=== PATIENT | male | born 1935 | race Caucasian/White ===

== ENCOUNTER → 2018-02-24 | Outpatient (REF) | payer OTHER ==
[2018-02-24 08:37] LABS: HEMATOCRIT 31.2 % (42.0-52.0); HEMOGLOBIN 10.5 g/dl (13.5-17.5); MEAN CORPUSCULAR HEMOGLOBIN 30.5 pg (27.0-33.0); MEAN CORPUSCULAR HGB CONC 33.7 g/dl (32.0-36.5); MEAN CORPUSCULAR VOLUME 90.7 fl (80.0-96.0); PLATELET COUNT, AUTOMATED 262 10^3/uL (150-450); RED BLOOD COUNT 3.44 10^6/uL (4.30-6.10); RED CELL DISTRIBUTION WIDTH 14.6 % (11.5-14.5); WHITE BLOOD COUNT 5.8 10^3/uL (4.0-10.0)
[2018-02-24 09:21] LABS: ANION GAP 8 MEQ/L (8-16); BLOOD UREA NITROGEN 27 MG/DL (7-18); CALCIUM LEVEL 8.7 MG/DL (8.8-10.2); CARBON DIOXIDE LEVEL 25 MEQ/L (21-32); CHLORIDE LEVEL 107 MEQ/L (98-107); CHOLESTEROL LEVEL 167 MG/DL (<200); CREATININE FOR GFR 1.41 MG/DL (0.70-1.30); GLOMERULAR FILTRATION RATE 51.5 (>35); GLUCOSE, FASTING 141 MG/DL (70-100); HDL CHOLESTEROL 59 MG/DL (>40); IRON (FE) 50 UG/DL (65-175); NON-HDL-C 108 MG/DL; SODIUM LEVEL 140 MEQ/L (136-145); TRIGLYCERIDES LEVEL 120 MG/DL (<150)
[2018-02-24 09:39] LABS: ESTIMATED AVERAGE GLUCOSE 217 MG/DL (60-110); HEMOGLOBIN A1c 9.2 %
== END ==
LOC: SKLAB8 07:00
DX: E87.6 Hypokalemia (principal); E11.9 Type 2 diabetes mellitus without complications; I10 Essential (primary) hypertension; N13.30 Unspecified hydronephrosis; L03.115 Cellulitis of right lower limb; K76.89 Other specified diseases of liver; F03.90 Unspecified dementia, unspecified severity, without behavioral disturbance, psychotic disturbance, mood disturbance, and anxiety; Z79.899 Other long term (current) drug therapy
CPT/HCPCS: 83540

== ENCOUNTER → 2018-03-17 | Outpatient (REF) | payer OTHER ==
[2018-03-17 08:29] LABS: HEMATOCRIT 33.1 % (42.0-52.0); HEMOGLOBIN 11.3 g/dl (13.5-17.5); MEAN CORPUSCULAR HEMOGLOBIN 31.1 pg (27.0-33.0); MEAN CORPUSCULAR HGB CONC 34.1 g/dl (32.0-36.5); MEAN CORPUSCULAR VOLUME 91.2 fl (80.0-96.0); PLATELET COUNT, AUTOMATED 226 10^3/uL (150-450); RED BLOOD COUNT 3.63 10^6/uL (4.30-6.10); WHITE BLOOD COUNT 5.7 10^3/uL (4.0-10.0)
[2018-03-17 09:01] LABS: ANION GAP 7 MEQ/L (8-16); BLOOD UREA NITROGEN 22 MG/DL (7-18); CALCIUM LEVEL 8.7 MG/DL (8.8-10.2); CARBON DIOXIDE LEVEL 28 MEQ/L (21-32); CHLORIDE LEVEL 108 MEQ/L (98-107); CREATININE FOR GFR 1.54 MG/DL (0.70-1.30); GLOMERULAR FILTRATION RATE 46.5 (>35); GLUCOSE, FASTING 142 MG/DL (70-100); POTASSIUM SERUM 4.1 MEQ/L (3.5-5.1); SODIUM LEVEL 143 MEQ/L (136-145)
== END ==
LOC: SKLAB8 08:00
DX: R33.9 Retention of urine, unspecified (principal); N13.9 Obstructive and reflux uropathy, unspecified; Z87.448 Personal history of other diseases of urinary system
CPT/HCPCS: 80048

== ENCOUNTER → 2018-03-17 | Outpatient (CLI) | payer OTHER | LOC: M RAD 13:03 | DX: N28.89 Other specified disorders of kidney and ureter (principal); N13.30 Unspecified hydronephrosis | CPT/HCPCS: 76775 ==

== ENCOUNTER → 2018-04-05 | Outpatient (REF) | payer OTHER ==
[2018-04-05 21:58] LABS: BASO % 0.1 % (0.0-1.0); EOS % 0.3 % (0.0-3.0); HEMOGLOBIN 10.8 g/dl (13.5-17.5); IMMATURE GRANULOCYTE % 0.7 % (0-3.0); LYMPH # 0.5 10^3/uL (1.5-4.5); LYMPH % 4.8 % (24.0-44.0); MEAN CORPUSCULAR HGB CONC 33.8 g/dl (32.0-36.5); MONO # 0.6 10^3/uL (0.0-0.8); MONO % 5.2 % (0.0-5.0); NEUTROPHILS # 9.4 10^3/uL (1.8-7.7); NEUTROPHILS % 88.9 % (36.0-66.0); PLATELET COUNT, AUTOMATED 169 10^3/uL (150-450); RED BLOOD COUNT 3.48 10^6/uL (4.30-6.10); RED CELL DISTRIBUTION WIDTH 14.6 % (11.5-14.5); WHITE BLOOD COUNT 10.6 10^3/uL (4.0-10.0)
[2018-04-05 22:18] LABS: ANION GAP 5 MEQ/L (8-16); BLOOD UREA NITROGEN 21 MG/DL (7-18); CALCIUM LEVEL 8.1 MG/DL (8.8-10.2); CARBON DIOXIDE LEVEL 27 MEQ/L (21-32); CHLORIDE LEVEL 109 MEQ/L (98-107); CREATININE FOR GFR 1.31 MG/DL (0.70-1.30); GLUCOSE, FASTING 151 MG/DL (70-100); POTASSIUM SERUM 3.7 MEQ/L (3.5-5.1); SODIUM LEVEL 141 MEQ/L (136-145)
== END ==
LOC: SKLAB8 21:13
DX: R50.9 Fever, unspecified (principal)
CPT/HCPCS: 71045

== ENCOUNTER → 2018-05-26 | Outpatient (REF) | payer OTHER ==
[2018-05-26 08:10] LABS: HEMATOCRIT 33.1 % (42.0-52.0); HEMOGLOBIN 11.7 g/dl (13.5-17.5); MEAN CORPUSCULAR HEMOGLOBIN 32.1 pg (27.0-33.0); MEAN CORPUSCULAR HGB CONC 35.3 g/dl (32.0-36.5); MEAN CORPUSCULAR VOLUME 90.7 fl (80.0-96.0); PLATELET COUNT, AUTOMATED 247 10^3/uL (150-450); RED BLOOD COUNT 3.65 10^6/uL (4.30-6.10); RED CELL DISTRIBUTION WIDTH 13.2 % (11.5-14.5); WHITE BLOOD COUNT 6.9 10^3/uL (4.0-10.0)
[2018-05-26 08:35] LABS: IRON (FE) 58 UG/DL (65-175)
== END ==
LOC: SKLAB8 07:00
DX: Z00.00 Encounter for general adult medical examination without abnormal findings (principal); Z79.899 Other long term (current) drug therapy
CPT/HCPCS: 83540

== ENCOUNTER → 2018-07-06 | Outpatient (REF) | payer OTHER ==
[2018-07-06 07:20] LABS: ESTIMATED AVERAGE GLUCOSE 203 MG/DL (60-110); HEMOGLOBIN A1c 8.7 %
== END ==
LOC: SKLAB8 08:00
DX: E11.9 Type 2 diabetes mellitus without complications (principal)
CPT/HCPCS: 83036

== ENCOUNTER → 2018-07-13 | Outpatient (REF) | payer OTHER | LOC: SKLAB8 08:00 | DX: K08.9 Disorder of teeth and supporting structures, unspecified (principal) | CPT/HCPCS: 70355 ==

== ENCOUNTER → 2018-07-26 | Outpatient (REF) | payer OTHER ==
[2018-07-26 03:12] LABS: APPEARANCE, URINE CLOUDY (CLEAR); BACTERIA, URINE AUTO 2+ (NEGATIVE); BILIRUBIN, URINE AUTO NEGATIVE (NEGATIVE); BLOOD, URINE BLOOD NEGATIVE (NEGATIVE); COLOR, URINE YELLOW (YELLOW); GLUCOSE, URINE (UA) AUTO 3+ mg/dL (NEGATIVE); KETONE, URINE AUTO NEGATIVE (NEGATIVE); LEUKOCYTE ESTERASE, URINE AUTO 2+ (NEGATIVE); MUCUS, URINE SMALL (NEGATIVE); NITRITE, URINE AUTO NEGATIVE (NEGATIVE); PROTEIN, URINE AUTO NEGATIVE (NEGATIVE); RBC, URINE AUTO TNTC /HPF (0-3); SPECIFIC GRAVITY URINE AUTO 1.014 (1.002-1.035); SQUAMOUS EPITHELIAL CELL UR AU 0 /HPF (0-6); UROBILINOGEN, URINE AUTO 0.2 mg/dL (0.0-2.0); WBC, URINE AUTO 15 /HPF (0-3); YEAST LIKE CELL URINE AUTO LARGE
== END ==
LOC: M LAB 01:55
DX: R30.0 Dysuria (principal)
CPT/HCPCS: 81001

== ENCOUNTER → 2018-08-05 | Outpatient (REF) | payer OTHER | LOC: M SMT 12:59 | DX: N40.1 Benign prostatic hyperplasia with lower urinary tract symptoms (principal) | CPT/HCPCS: 87186 ==

== ENCOUNTER → 2018-08-13 | Outpatient (CLI) | payer OTHER ==
[2018-08-13 21:57] LABS: APPEARANCE, URINE CLEAR (CLEAR); BACTERIA, URINE AUTO NEGATIVE (NEGATIVE); BILIRUBIN, URINE AUTO NEGATIVE (NEGATIVE); BLOOD, URINE BLOOD NEGATIVE (NEGATIVE); COLOR, URINE YELLOW (YELLOW); GLUCOSE, URINE (UA) AUTO 3+ mg/dL (NEGATIVE); KETONE, URINE AUTO NEGATIVE (NEGATIVE); LEUKOCYTE ESTERASE, URINE AUTO 3+ (NEGATIVE); MUCUS, URINE SMALL (NEGATIVE); NITRITE, URINE AUTO NEGATIVE (NEGATIVE); PROTEIN, URINE AUTO NEGATIVE (NEGATIVE); RBC, URINE AUTO 9 /HPF (0-3); SPECIFIC GRAVITY URINE AUTO 1.018 (1.002-1.035); SQUAMOUS EPITHELIAL CELL UR AU 0 /HPF (0-6); UROBILINOGEN, URINE AUTO 0.2 mg/dL (0.0-2.0); WBC, URINE AUTO 109 /HPF (0-3); YEAST LIKE CELL URINE AUTO SMALL
== END ==
LOC: SKLAB8 21:28
DX: N39.0 Urinary tract infection, site not specified (principal)
CPT/HCPCS: 81001

== ENCOUNTER → 2018-08-25 | Outpatient (REF) | payer OTHER ==
[2018-08-25 08:42] LABS: HEMATOCRIT 32.6 % (42.0-52.0); HEMOGLOBIN 11.4 g/dl (13.5-17.5); MEAN CORPUSCULAR HEMOGLOBIN 33.5 pg (27.0-33.0); MEAN CORPUSCULAR VOLUME 95.9 fl (80.0-96.0); PLATELET COUNT, AUTOMATED 178 10^3/uL (150-450); RED CELL DISTRIBUTION WIDTH 13.7 % (11.5-14.5); WHITE BLOOD COUNT 4.9 10^3/uL (4.0-10.0)
[2018-08-25 09:09] LABS: ANION GAP 8 MEQ/L (8-16); BLOOD UREA NITROGEN 19 MG/DL (7-18); CALCIUM LEVEL 8.3 MG/DL (8.8-10.2); CARBON DIOXIDE LEVEL 27 MEQ/L (21-32); CHLORIDE LEVEL 110 MEQ/L (98-107); CREATININE FOR GFR 1.28 MG/DL (0.70-1.30); GLOMERULAR FILTRATION RATE 57.4 (>35); GLUCOSE, FASTING 107 MG/DL (70-100); IRON (FE) 64 UG/DL (65-175); POTASSIUM SERUM 3.8 MEQ/L (3.5-5.1); SODIUM LEVEL 145 MEQ/L (136-145)
[2018-08-25 11:32] LABS: ESTIMATED AVERAGE GLUCOSE 212 MG/DL (60-110)
== END ==
LOC: SKLAB8 07:00
DX: F03.90 Unspecified dementia, unspecified severity, without behavioral disturbance, psychotic disturbance, mood disturbance, and anxiety (principal); E11.9 Type 2 diabetes mellitus without complications
CPT/HCPCS: 83540

== ENCOUNTER → 2018-10-12 | Outpatient (REF) | payer OTHER ==
[2018-10-12 15:28] LABS: HEMATOCRIT 35.5 % (42.0-52.0); HEMOGLOBIN 12.2 g/dl (13.5-17.5); MEAN CORPUSCULAR HEMOGLOBIN 31.1 pg (27.0-33.0); MEAN CORPUSCULAR HGB CONC 34.4 g/dl (32.0-36.5); MEAN CORPUSCULAR VOLUME 90.6 fl (80.0-96.0); PLATELET COUNT, AUTOMATED 213 10^3/uL (150-450); RED BLOOD COUNT 3.92 10^6/uL (4.30-6.10); RED CELL DISTRIBUTION WIDTH 13.3 % (11.5-14.5); WHITE BLOOD COUNT 6.3 10^3/uL (4.0-10.0)
[2018-10-12 16:07] LABS: ALBUMIN 3.7 GM/DL (3.2-5.2); ALBUMIN/GLOBULIN RATIO 1.32 (1.00-1.93); ALKALINE PHOSPHATASE 77 U/L (45-117); ALT/SGPT 24 U/L (12-78); ANION GAP 7 MEQ/L (8-16); AST/SGOT 15 U/L (7-37); BILIRUBIN,TOTAL 0.7 MG/DL (0.2-1.0); BLOOD UREA NITROGEN 20 MG/DL (7-18); CALCIUM LEVEL 8.6 MG/DL (8.8-10.2); CARBON DIOXIDE LEVEL 26 MEQ/L (21-32); CHLORIDE LEVEL 110 MEQ/L (98-107); CREATININE FOR GFR 1.36 MG/DL (0.70-1.30); GLOMERULAR FILTRATION RATE 53.5 (>35); GLUCOSE, FASTING 98 MG/DL (70-100); POTASSIUM SERUM 3.9 MEQ/L (3.5-5.1); SODIUM LEVEL 143 MEQ/L (136-145); TOTAL PROTEIN 6.5 GM/DL (6.4-8.2)
== END ==
LOC: SKLAB8 08:00
DX: Z00.00 Encounter for general adult medical examination without abnormal findings (principal)
CPT/HCPCS: 84443

== ENCOUNTER → 2018-11-24 | Outpatient (REF) | payer OTHER ==
[2018-11-24 08:44] LABS: HEMATOCRIT 36.3 % (42.0-52.0); HEMOGLOBIN 12.9 g/dl (13.5-17.5); MEAN CORPUSCULAR HEMOGLOBIN 32.5 pg (27.0-33.0); MEAN CORPUSCULAR HGB CONC 35.5 g/dl (32.0-36.5); MEAN CORPUSCULAR VOLUME 91.4 fl (80.0-96.0); PLATELET COUNT, AUTOMATED 210 10^3/uL (150-450); RED BLOOD COUNT 3.97 10^6/uL (4.30-6.10); WHITE BLOOD COUNT 6.5 10^3/uL (4.0-10.0)
== END ==
LOC: SKLAB8 07:00
PROVIDERS: ATTEND Family Medicine
DX: F03.90 Unspecified dementia, unspecified severity, without behavioral disturbance, psychotic disturbance, mood disturbance, and anxiety (principal); E11.9 Type 2 diabetes mellitus without complications

== ENCOUNTER → 2019-03-06 | Outpatient (REF) | payer OTHER ==
--- NOTE | 2019-03-07 01:50 | REP ---
Clinical: Pain. Technique: AP, lateral, bilateral oblique and sunrise views of the right knee. Findings: Mild arthritic changes include cortical irregularity to the femoral condyles, increased sclerosis to the tibial plateau and periarticular surfaces of the patellofemoral joint space as well as fraying along the anterior margin of the patella and very subtle early osteophyte formation/spurring. [place] view demonstrates mild patellofemoral joint space narrowing and lateral spurring. No acute fracture or dislocation. No effusion. Impression: Mild osteoarthritic degenerative changes. No obvious acute fracture or dislocation. Electronically Signed by Eyad Hirsch MD 03/07/2019 01:43 A
== END ==
LOC: SKLAB8 13:00
PROVIDERS: ATTEND Family Medicine
DX: M25.561 Pain in right knee (principal); M17.11 Unilateral primary osteoarthritis, right knee

== ENCOUNTER → 2019-03-16 | Outpatient (REF) | payer OTHER ==
--- NOTE | 2019-03-16 15:15 | REP ---
Left knee series: Five views. History: Pain. No trauma. Findings: Five views of the left knee demonstrates articular osteoarthritic spurring of the lateral patellar margin on sunrise view. There is mild nonarticular spurring at the superior pole of the patella as well. Vascular calcifications noted in the proximal calf soft tissues. Bones, joints and soft tissues are otherwise unremarkable. Impression: Mild osteoarthritis. No acute bony abnormality. Electronically Signed by Cristino Carter MD 03/16/2019 03:06 P
== END ==
LOC: SKLAB8 13:37
PROVIDERS: ATTEND Family Medicine
DX: M25.562 Pain in left knee (principal); M17.12 Unilateral primary osteoarthritis, left knee

== ENCOUNTER → 2019-05-25 | Outpatient (REF) | payer OTHER ==
[2019-05-25 07:58] LABS: HEMATOCRIT 38.9 % (42.0-52.0); MEAN CORPUSCULAR HGB CONC 33.4 g/dl (32.0-36.5); MEAN CORPUSCULAR VOLUME 95.8 fl (80.0-96.0); PLATELET COUNT, AUTOMATED 314 10^3/uL (150-450); RED BLOOD COUNT 4.06 10^6/uL (4.30-6.10)
== END ==
LOC: SKLAB8 07:00
PROVIDERS: ATTEND Family Medicine
DX: D64.9 Anemia, unspecified (principal); E11.9 Type 2 diabetes mellitus without complications

== ENCOUNTER 2019-07-14 16:29 | Emergency (ER) | payer MEDICARE, MEDICAID ==
[~2019-07-14] VITALS: Ht 172.7 cm; Wt 98.2 kg
[2019-07-14 17:03] LABS: VENOUS BASE EXCESS -1.3 (-2.0-2.0); VENOUS HCO3 21.8 MEQ/L (23.0-27.0); VENOUS O2 SATURATION 97.7 % (60.0-80.0); VENOUS PARTIAL PRESSURE CO2 31.6 mmHg (38.0-50.0); VENOUS PARTIAL PRESSURE O2 96.4 mmHg (30.0-50.0); VENOUS PH 7.456 UNITS (7.330-7.430); VENOUS STANDARD HCO3 23.4 MEQ/L; VENOUS TOTAL CO2 22.7 MEQ/L (24.0-28.0)
[2019-07-14 17:08] LABS: BASO % 0.3 % (0.0-1.0); EOS # 0.1 10^3/uL (0.0-0.5); HEMATOCRIT 37.2 % (42.0-52.0); HEMOGLOBIN 12.6 g/dl (13.5-17.5); LYMPH # 1.6 10^3/uL (1.5-5.0); LYMPH % 15.1 % (24.0-44.0); MEAN CORPUSCULAR HEMOGLOBIN 31.7 pg (27.0-33.0); MEAN CORPUSCULAR HGB CONC 33.9 g/dl (32.0-36.5); MEAN CORPUSCULAR VOLUME 93.7 fl (80.0-96.0); MONO # 0.9 10^3/uL (0.0-0.8); MONO % 8.9 % (0.0-5.0); NEUTROPHILS # 7.6 10^3/uL (1.5-8.5); NEUTROPHILS % 74.3 % (36.0-66.0); PLATELET COUNT, AUTOMATED 244 10^3/uL (150-450); RED BLOOD COUNT 3.97 10^6/uL (4.30-6.10); WHITE BLOOD COUNT 10.3 10^3/uL (4.0-10.0)
--- NOTE | 2019-07-14 17:27 | REP ---
Clinical: Cough and dyspnea . Comparison: 04/05/2018 . Findings: The mediastinum and cardiac silhouette are stable and within normal limits for portable technique. The lung norris are clear without acute consolidation, effusion, or pneumothorax. Skeletal structures are intact. Impression: No acute cardiopulmonary process appreciated. Electronically Signed by Eyad Hirsch MD 07/14/2019 05:19 P
[2019-07-14] MEDS ORDERED: KLOR10TA76 PO (17:31)
[2019-07-14] MEDS ORDERED: BENG1CRE3 TOP (17:31)
[2019-07-14] MEDS ORDERED: QC A650T3 PO (17:31)
[2019-07-14] MEDS ORDERED: SENN-23 PO (17:31)
[2019-07-14] MEDS ORDERED: ACET-907 PO (17:31)
[2019-07-14] MEDS ORDERED: VITA-158 PO (17:31)
[2019-07-14] MEDS ORDERED: CITA10TA6 PO (17:31)
[2019-07-14] MEDS ORDERED: BASA100I SC (17:31)
[2019-07-14] MEDS ORDERED: TRAZ-252 PO (17:31)
[2019-07-14] MEDS ORDERED: ATOR1TAB19 PO (17:32)
[2019-07-14] MEDS ORDERED: ALB2.5NEB INH (17:32)
[2019-07-14] MEDS ORDERED: BISA10SU PR (17:32)
[2019-07-14] MEDS ORDERED: MILKSUS3 PO (17:32)
[2019-07-14] MEDS ORDERED: ENEMENE PR (17:32)
[2019-07-14 17:36] LABS: ALBUMIN 3.6 GM/DL (3.2-5.2); ALT/SGPT 25 U/L (12-78); BILIRUBIN,DIRECT 0.2 MG/DL (0.0-0.2); BILIRUBIN,TOTAL 0.6 MG/DL (0.2-1.0); BLOOD UREA NITROGEN 20 MG/DL (7-18); CALCIUM LEVEL 8.7 MG/DL (8.8-10.2); CARBON DIOXIDE LEVEL 26 MEQ/L (21-32); CHLORIDE LEVEL 106 MEQ/L (98-107); CK-MB VALUE MASS 3.1 NG/ML (<3.6); CPK CREATINE PHOSPHOKINASE 84 U/L (39-308); CREATININE FOR GFR 1.36 MG/DL (0.70-1.30); GLOMERULAR FILTRATION RATE 53.5 (>35); GLUCOSE, FASTING 245 MG/DL (70-100); MB/CK RELATIVE INDEX 3.69 (< OR =4); NT-PRO BNP 131 PG/ML (<450); POTASSIUM SERUM 4.1 MEQ/L (3.5-5.1); SODIUM LEVEL 139 MEQ/L (136-145); TROPONIN I < 0.02 NG/ML (< 0.10)
[2019-07-14 18:52] VITALS: BP 152/89
--- NOTE | 2019-07-15 15:04 | ECGEPIP ---
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
== END 2019-07-14 18:58 | disposition home or self-care (01) ==
LOC: M ED 16:29 → EDBD 16:29 → M ED 18:58
DX: R06.02 Shortness of breath (principal); F03.90 Unspecified dementia, unspecified severity, without behavioral disturbance, psychotic disturbance, mood disturbance, and anxiety; E11.9 Type 2 diabetes mellitus without complications; I10 Essential (primary) hypertension; Z79.4 Long term (current) use of insulin; Z79.51 Long term (current) use of inhaled steroids; Z79.899 Other long term (current) drug therapy

== ENCOUNTER → 2019-07-17 | Outpatient (REF) | payer MEDICARE, MEDICAID ==
[~2019-07-17] MED LIST: ACET-907 PO; ALB2.5NEB INH; ATOR1TAB19 PO; BASA100I SC; BENG1CRE3 TOP; BISA10SU PR; CITA10TA6 PO; ENEMENE PR; KLOR10TA76 PO; MILKSUS3 PO; QC A650T3 PO; SENN-23 PO; TRAZ-252 PO; VITA-158 PO
[2019-07-17 19:53] LABS: APPEARANCE, URINE CLEAR (CLEAR); BACTERIA, URINE AUTO 3+ (NEGATIVE); BILIRUBIN, URINE AUTO NEGATIVE (NEGATIVE); BLOOD, URINE BLOOD 2+ (NEGATIVE); COLOR, URINE YELLOW (YELLOW); GLUCOSE, URINE (UA) AUTO NEGATIVE (NEGATIVE); KETONE, URINE AUTO NEGATIVE (NEGATIVE); LEUKOCYTE ESTERASE, URINE AUTO 1+ (NEGATIVE); MUCUS, URINE SMALL (NEGATIVE); NITRITE, URINE AUTO NEGATIVE (NEGATIVE); PROTEIN, URINE AUTO NEGATIVE (NEGATIVE); RBC, URINE AUTO 5 /HPF (0-3); SPECIFIC GRAVITY URINE AUTO 1.011 (1.002-1.035); SQUAMOUS EPITHELIAL CELL UR AU 0 /HPF (0-6); UROBILINOGEN, URINE AUTO 0.2 mg/dL (0.0-2.0); WBC, URINE AUTO 29 /HPF (0-3)
== END ==
LOC: M LAB 18:45 → SKLAB8 19:22
PROVIDERS: ATTEND Nurse Practitioner Family
DX: R50.9 Fever, unspecified (principal)

== ENCOUNTER 2019-07-22 03:03 | Emergency (ER) | payer MEDICARE, MEDICAID ==
[~2019-07-22] VITALS: Ht 175.3 cm; Wt 102.7 kg
[2019-07-22] MEDS ORDERED: LIDOCAINE 2% 5ML JELLY UROJET TOP ONE ×2 (05:00)
[2019-07-22 07:32] VITALS: BP 175/86
== END 2019-07-22 08:09 | disposition home or self-care (01) ==
LOC: M ED 03:03
DX: T83.028A Displacement of other urinary catheter, initial encounter (principal); X58.XXXA Exposure to other specified factors, initial encounter; Y92.89 Other specified places as the place of occurrence of the external cause; E11.9 Type 2 diabetes mellitus without complications; I10 Essential (primary) hypertension; E78.5 Hyperlipidemia, unspecified; F03.90 Unspecified dementia, unspecified severity, without behavioral disturbance, psychotic disturbance, mood disturbance, and anxiety; Z79.899 Other long term (current) drug therapy

== ENCOUNTER → 2019-08-24 | Outpatient (REF) | payer MEDICARE ==
[2019-08-24 08:42] LABS: HEMATOCRIT 35.2 % (42.0-52.0); HEMOGLOBIN 11.8 g/dl (13.5-17.5); MEAN CORPUSCULAR HEMOGLOBIN 31.7 pg (27.0-33.0); MEAN CORPUSCULAR HGB CONC 33.5 g/dl (32.0-36.5); MEAN CORPUSCULAR VOLUME 94.6 fl (80.0-96.0); PLATELET COUNT, AUTOMATED 188 10^3/uL (150-450); RED BLOOD COUNT 3.72 10^6/uL (4.30-6.10); WHITE BLOOD COUNT 5.5 10^3/uL (4.0-10.0)
[2019-08-24 09:03] LABS: CALCIUM LEVEL 8.3 MG/DL (8.8-10.2); CREATININE FOR GFR 1.41 MG/DL (0.70-1.30); GLOMERULAR FILTRATION RATE 51.2 (>35); POTASSIUM SERUM 4.1 MEQ/L (3.5-5.1)
[2019-08-24 09:13] LABS: HEMOGLOBIN A1c 8.4 %
== END ==
LOC: SKLAB8 07:00
PROVIDERS: ATTEND Family Medicine
DX: E11.9 Type 2 diabetes mellitus without complications (principal); Z79.899 Other long term (current) drug therapy

== ENCOUNTER → 2019-11-23 | Outpatient (REF) | payer MEDICARE, OTHER, MEDICAID ==
[2019-11-23 09:12] LABS: HEMATOCRIT 37.9 % (42.0-52.0); HEMOGLOBIN 12.9 g/dl (13.5-17.5); MEAN CORPUSCULAR HEMOGLOBIN 32.3 pg (27.0-33.0); PLATELET COUNT, AUTOMATED 204 10^3/uL (150-450); RED BLOOD COUNT 3.99 10^6/uL (4.30-6.10); WHITE BLOOD COUNT 6.3 10^3/uL (4.0-10.0)
== END ==
LOC: SKLAB8 07:00
PROVIDERS: ATTEND Family Medicine
DX: Z79.899 Other long term (current) drug therapy (principal)

== ENCOUNTER → 2020-01-01 | Outpatient (REF) | payer MEDICARE, OTHER, MEDICAID ==
[2020-01-01 16:56] LABS: INFLUENZA A AMPLIFICATION POSITIVE (NEGATIVE); INFLUENZA B AMPLIFICATION NEGATIVE (NEGATIVE)
== END ==
LOC: SKLAB8 15:33
PROVIDERS: ATTEND Family Medicine
DX: Z79.899 Other long term (current) drug therapy (principal)

== ENCOUNTER → 2020-01-12 | Outpatient (REF) | payer MEDICARE, OTHER, MEDICAID ==
[2020-01-12 12:08] LABS: APPEARANCE, URINE CLOUDY (CLEAR); BACTERIA, URINE AUTO 3+ (NEGATIVE); BILIRUBIN, URINE AUTO NEGATIVE (NEGATIVE); BLOOD, URINE BLOOD NEGATIVE (NEGATIVE); COLOR, URINE YELLOW (YELLOW); GLUCOSE, URINE (UA) AUTO 1+ mg/dL (NEGATIVE); KETONE, URINE AUTO NEGATIVE (NEGATIVE); LEUKOCYTE ESTERASE, URINE AUTO 3+ (NEGATIVE); MUCUS, URINE SMALL (NEGATIVE); NITRITE, URINE AUTO POSITIVE (NEGATIVE); PROTEIN, URINE AUTO NEGATIVE (NEGATIVE); RBC, URINE AUTO 76 /HPF (0-3); SPECIFIC GRAVITY URINE AUTO 1.018 (1.002-1.035); SQUAMOUS EPITHELIAL CELL UR AU 0 /HPF (0-6); UROBILINOGEN, URINE AUTO 0.2 mg/dL (0.0-2.0); WBC, URINE AUTO 103 /HPF (0-3)
== END ==
LOC: SKLAB8 11:00
PROVIDERS: ATTEND Family Medicine
DX: R41.82 Altered mental status, unspecified (principal); Z79.899 Other long term (current) drug therapy

== ENCOUNTER → 2020-02-22 | Outpatient (REF) | payer MEDICARE, OTHER, MEDICAID ==
[2020-02-22 09:38] LABS: HEMATOCRIT 39.1 % (42.0-52.0); HEMOGLOBIN 12.9 g/dl (13.5-17.5); MEAN CORPUSCULAR HEMOGLOBIN 31.6 pg (27.0-33.0); MEAN CORPUSCULAR VOLUME 95.8 fl (80.0-96.0); PLATELET COUNT, AUTOMATED 198 10^3/uL (150-450); RED BLOOD COUNT 4.08 10^6/uL (4.30-6.10); WHITE BLOOD COUNT 5.4 10^3/uL (4.0-10.0)
[2020-02-22 10:36] LABS: CALCIUM LEVEL 8.5 MG/DL (8.8-10.2); CHOLESTEROL RISK RATIO 2.346 (<5); CREATININE FOR GFR 1.37 MG/DL (0.70-1.30); POTASSIUM SERUM 4.2 MEQ/L (3.5-5.1)
[2020-02-22 11:28] LABS: HEMOGLOBIN A1c 8.1 %
== END ==
LOC: SKLAB8 07:00
PROVIDERS: ATTEND Family Medicine
DX: E78.5 Hyperlipidemia, unspecified (principal); E11.9 Type 2 diabetes mellitus without complications; D64.9 Anemia, unspecified; Z12.6 Encounter for screening for malignant neoplasm of bladder
CPT/HCPCS: 36415; 80048; 80061; 83036; 83540; 85027; G0103

== ENCOUNTER → 2020-04-11 | Outpatient (REF) | payer MEDICARE, OTHER, MEDICAID ==
--- NOTE | 2020-04-12 12:41 | REP ---
REASON: Tooth extraction. Panorex view. Compared to 07/13/2018. There is no fracture. For evaluation of dentition, a dentist is necessary. I am not a dentist. Electronically Signed by Sunil Infante DO 04/12/2020 05:02 P
== END ==
LOC: SKLAB8 10:30
PROVIDERS: ATTEND Family Medicine
DX: K08.89 Other specified disorders of teeth and supporting structures (principal)

== ENCOUNTER → 2020-05-23 | Outpatient (REF) | payer MEDICARE, MEDICAID ==
[2020-05-23 10:58] LABS: ALBUMIN 3.5 GM/DL (3.2-5.2); BILIRUBIN,TOTAL 0.5 MG/DL (0.2-1.0); CALCIUM LEVEL 8.4 MG/DL (8.8-10.2); CHOLESTEROL RISK RATIO 2.604 (<5); CREATININE FOR GFR 1.32 MG/DL (0.70-1.30); GLOMERULAR FILTRATION RATE 55.3 (>35); POTASSIUM SERUM 3.8 MEQ/L (3.5-5.1); TOTAL PROTEIN 6.5 GM/DL (6.4-8.2)
== END ==
LOC: SKLAB8 07:00
DX: E11.9 Type 2 diabetes mellitus without complications (principal)

== ENCOUNTER → 2020-07-11 | Outpatient (REF) | payer MEDICARE, MEDICAID | LOC: SKLAB5 06:39 | DX: D64.9 Anemia, unspecified (principal) ==

== ENCOUNTER → 2020-08-08 | Outpatient (REF) | payer MEDICARE, MEDICAID ==
[2020-08-08 08:09] LABS: HEMOGLOBIN 11.9 g/dl (13.5-17.5); MEAN CORPUSCULAR HEMOGLOBIN 33.3 pg (27.0-33.0); MEAN CORPUSCULAR VOLUME 95.2 fl (80.0-96.0); PLATELET COUNT, AUTOMATED 174 10^3/uL (150-450); RED BLOOD COUNT 3.57 10^6/uL (4.30-6.10)
[2020-08-08 08:39] LABS: PERCENT SATURATION 22.7 % (19.7-50.0)
== END ==
LOC: SKLAB5 07:20
DX: Z86.2 Personal history of diseases of the blood and blood-forming organs and certain disorders involving the immune mechanism (principal); E11.9 Type 2 diabetes mellitus without complications

== ENCOUNTER → 2020-09-10 | Outpatient (REF) | payer MEDICARE, MEDICAID ==
[2020-09-10 11:26] LABS: PHOSPHORUS LEVEL 3.5 MG/DL (2.5-4.9)
[2020-09-10 11:37] LABS: PTH INTACT 82.3 PG/ML (18.5-88.0)
== END ==
LOC: SKLAB5 07:59
DX: N18.9 Chronic kidney disease, unspecified (principal); Z79.899 Other long term (current) drug therapy

== ENCOUNTER → 2020-09-25 | Outpatient (REF) | payer MEDICARE, MEDICAID | LOC: SKLAB5 09-24 14:51 → EDSTATUS 10-09 14:49 | DX: Z20.828 Contact with and (suspected) exposure to other viral communicable diseases (principal) ==

== ENCOUNTER → 2020-10-02 | Outpatient (REF) | payer MEDICARE, MEDICAID, OTHER | LOC: SKLAB5 08:00 | PROVIDERS: ATTEND Internal Medicine | DX: Z20.828 Contact with and (suspected) exposure to other viral communicable diseases (principal) ==

== ENCOUNTER → 2020-10-09 | Outpatient (REF) | payer MEDICARE, MEDICAID, OTHER | LOC: SKLAB5 08:00 | PROVIDERS: ATTEND Internal Medicine | DX: Z20.828 Contact with and (suspected) exposure to other viral communicable diseases (principal) ==

== ENCOUNTER → 2020-10-10 | Outpatient (REF) | payer MEDICARE, MEDICAID | LOC: SKLAB5 07:59 | DX: D64.9 Anemia, unspecified (principal) ==

== ENCOUNTER → 2020-10-16 | Outpatient (REF) | payer MEDICARE, MEDICAID | LOC: SKLAB5 06:33 | PROVIDERS: ATTEND Family Medicine | DX: Z20.828 Contact with and (suspected) exposure to other viral communicable diseases (principal) ==

== ENCOUNTER → 2020-10-23 | Outpatient (REF) | payer MEDICARE, MEDICAID | LOC: SKLAB5 09:04 | DX: Z20.828 Contact with and (suspected) exposure to other viral communicable diseases (principal) ==

== ENCOUNTER → 2020-10-30 | Outpatient (REF) | payer MEDICARE, MEDICAID, OTHER | LOC: SKLAB5 05:53 | DX: Z20.828 Contact with and (suspected) exposure to other viral communicable diseases (principal) ==

== ENCOUNTER → 2020-11-06 | Outpatient (REF) | payer MEDICARE, MEDICAID, OTHER | LOC: SKLAB5 06:25 | DX: Z20.828 Contact with and (suspected) exposure to other viral communicable diseases (principal) ==

== ENCOUNTER → 2020-11-13 | Outpatient (REF) | payer MEDICARE, MEDICAID, OTHER | LOC: SKLAB5 06:56 | DX: Z11.52 Encounter for screening for COVID-19 (principal) ==

== ENCOUNTER → 2020-11-20 | Outpatient (REF) | payer MEDICARE, MEDICAID, OTHER | LOC: SKLAB5 06:35 | PROVIDERS: ATTEND Internal Medicine | DX: Z20.822 Contact with and (suspected) exposure to COVID-19 (principal) ==

== ENCOUNTER → 2020-11-27 | Outpatient (REF) | payer MEDICARE, MEDICAID, OTHER | LOC: SKLAB5 07:12 | PROVIDERS: ATTEND Internal Medicine | DX: Z20.822 Contact with and (suspected) exposure to COVID-19 (principal) ==

== ENCOUNTER → 2020-12-04 | Outpatient (REF) | payer MEDICARE, MEDICAID, OTHER | LOC: SKLAB5 07:12 | PROVIDERS: ATTEND Internal Medicine | DX: Z20.822 Contact with and (suspected) exposure to COVID-19 (principal) ==

== ENCOUNTER → 2020-12-11 | Outpatient (REF) | payer MEDICARE, MEDICAID, OTHER | LOC: SKLAB5 07:18 | PROVIDERS: ATTEND Internal Medicine | DX: Z20.822 Contact with and (suspected) exposure to COVID-19 (principal) ==

== ENCOUNTER → 2020-12-18 | Outpatient (REF) | payer MEDICARE, MEDICAID, OTHER | LOC: SKLAB5 06:19 | PROVIDERS: ATTEND Internal Medicine | DX: Z20.822 Contact with and (suspected) exposure to COVID-19 (principal) ==

== ENCOUNTER → 2020-12-25 | Outpatient (REF) | payer MEDICARE, MEDICAID, OTHER | LOC: SKLAB5 06:31 | PROVIDERS: ATTEND Internal Medicine | DX: Z20.822 Contact with and (suspected) exposure to COVID-19 (principal) ==

== ENCOUNTER → 2020-12-31 | Outpatient (REF) | payer MEDICARE, MEDICAID ==
[2020-12-31 20:17] LABS: APPEARANCE, URINE CLOUDY (CLEAR); BACTERIA, URINE AUTO 3+ (NEGATIVE); BILIRUBIN, URINE AUTO NEGATIVE (NEGATIVE); BLOOD, URINE BLOOD 1+ (NEGATIVE); COLOR, URINE YELLOW (YELLOW); GLUCOSE, URINE (UA) AUTO NEGATIVE (NEGATIVE); KETONE, URINE AUTO NEGATIVE (NEGATIVE); LEUKOCYTE ESTERASE, URINE AUTO 3+ (NEGATIVE); MUCUS, URINE SMALL (NEGATIVE); NITRITE, URINE AUTO POSITIVE (NEGATIVE); PROTEIN, URINE AUTO NEGATIVE (NEGATIVE); RBC, URINE AUTO 23 /HPF (0-3); SPECIFIC GRAVITY URINE AUTO 1.012 (1.002-1.035); SQUAMOUS EPITHELIAL CELL UR AU 1 /HPF (0-6); UROBILINOGEN, URINE AUTO 0.2 mg/dL (0.0-2.0); WBC, URINE AUTO TNTC /HPF (0-3)
== END ==
LOC: SKLAB5 19:23
DX: R41.82 Altered mental status, unspecified (principal)

== ENCOUNTER → 2021-01-01 | Outpatient (REF) | payer MEDICAID, MEDICARE, OTHER | LOC: SKLAB5 08:00 | PROVIDERS: ATTEND Internal Medicine | DX: Z20.822 Contact with and (suspected) exposure to COVID-19 (principal) ==

== ENCOUNTER → 2021-01-09 | Outpatient (REF) | payer MEDICARE, MEDICAID, OTHER | LOC: SKLAB5 06:37 | PROVIDERS: ATTEND Internal Medicine | DX: D64.9 Anemia, unspecified (principal); Z20.822 Contact with and (suspected) exposure to COVID-19 | CPT/HCPCS: 36415; 83540; U0003 ==

== ENCOUNTER → 2021-01-15 | Outpatient (REF) | payer MEDICARE, MEDICAID, OTHER | LOC: SKLAB5 06:24 | PROVIDERS: ATTEND Internal Medicine | DX: Z20.822 Contact with and (suspected) exposure to COVID-19 (principal) ==

== ENCOUNTER → 2021-01-22 | Outpatient (REF) | payer MEDICARE, MEDICAID, OTHER | LOC: SKLAB5 07:28 | PROVIDERS: ATTEND Internal Medicine | DX: Z20.822 Contact with and (suspected) exposure to COVID-19 (principal) ==

== ENCOUNTER → 2021-02-06 | Outpatient (REF) | payer MEDICARE, MEDICAID, OTHER ==
[2021-02-06 09:20] LABS: HEMATOCRIT 34.8 % (42.0-52.0); HEMOGLOBIN 11.5 g/dl (13.5-17.5); MEAN CORPUSCULAR HEMOGLOBIN 31.9 pg (27.0-33.0); MEAN CORPUSCULAR VOLUME 96.4 fl (80.0-96.0); PLATELET COUNT, AUTOMATED 220 10^3/uL (150-450); RED BLOOD COUNT 3.61 10^6/uL (4.30-6.10); WHITE BLOOD COUNT 6.3 10^3/uL (4.0-10.0)
[2021-02-06 09:58] LABS: ALBUMIN 3.4 GM/DL (3.2-5.2); BILIRUBIN,TOTAL 0.3 MG/DL (0.2-1.0); CALCIUM LEVEL 8.3 MG/DL (8.8-10.2); CREATININE FOR GFR 1.35 MG/DL (0.70-1.30); GLOMERULAR FILTRATION RATE 53.7 (>35); POTASSIUM SERUM 4.1 MEQ/L (3.5-5.1); THYROID STIMULATING HORMONE 2.79 uIU/ML (0.358-3.740); TOTAL PROTEIN 6.3 GM/DL (6.4-8.2)
[2021-02-06 12:58] LABS: HEMOGLOBIN A1c 6.3 %
== END ==
LOC: SKLAB5 14:31
DX: N18.9 Chronic kidney disease, unspecified (principal); D64.9 Anemia, unspecified; E11.9 Type 2 diabetes mellitus without complications; Z79.899 Other long term (current) drug therapy; Z12.5 Encounter for screening for malignant neoplasm of prostate
CPT/HCPCS: 36415; 80053; 83036; 84443; 85027; G0103

== ENCOUNTER → 2021-02-07 | Outpatient (REF) | payer MEDICARE, MEDICAID, OTHER | LOC: SKLAB5 07:08 | PROVIDERS: ATTEND Internal Medicine | DX: Z20.822 Contact with and (suspected) exposure to COVID-19 (principal) ==

== ENCOUNTER → 2021-02-12 | Outpatient (REF) | payer MEDICARE, MEDICAID, OTHER ==
[2021-02-12 11:07] LABS: CALCIUM LEVEL 8.7 MG/DL (8.8-10.2); CREATININE FOR GFR 1.57 MG/DL (0.70-1.30); GLOMERULAR FILTRATION RATE 45.1 (>35)
== END ==
LOC: SKLAB5 09:27
DX: R60.9 Edema, unspecified (principal)

== ENCOUNTER → 2021-02-17 | Outpatient (REF) | payer MEDICARE, MEDICAID, OTHER ==
[2021-02-17 23:56] LABS: AMORPHOUS SEDIMENT SMALL (NEGATIVE); APPEARANCE, URINE CLOUDY (CLEAR); BACTERIA, URINE AUTO 3+ (NEGATIVE); BILIRUBIN, URINE AUTO NEGATIVE (NEGATIVE); BLOOD, URINE BLOOD 1+ (NEGATIVE); COLOR, URINE YELLOW (YELLOW); GLUCOSE, URINE (UA) AUTO NEGATIVE (NEGATIVE); KETONE, URINE AUTO NEGATIVE (NEGATIVE); LEUKOCYTE ESTERASE, URINE AUTO 3+ (NEGATIVE); MUCUS, URINE SMALL (NEGATIVE); NITRITE, URINE AUTO NEGATIVE (NEGATIVE); PROTEIN, URINE AUTO NEGATIVE (NEGATIVE); RBC, URINE AUTO 11 /HPF (0-3); SPECIFIC GRAVITY URINE AUTO 1.014 (1.002-1.035); SQUAMOUS EPITHELIAL CELL UR AU 1 /HPF (0-6); UROBILINOGEN, URINE AUTO 0.2 mg/dL (0.0-2.0); WBC, URINE AUTO TNTC /HPF (0-3)
== END ==
LOC: SKLAB5 22:45
DX: R46.89 Other symptoms and signs involving appearance and behavior (principal); Z79.899 Other long term (current) drug therapy

== ENCOUNTER → 2021-03-01 | Outpatient (REF) | payer MEDICARE, MEDICAID ==
--- NOTE | 2021-03-01 21:40 | REP ---
INDICATION: RIGHT KNEE PAIN COMPARISON: 03/06/2019 TECHNIQUE: Portable AP and cross-table lateral views. FINDINGS: Mild early moderate osteoarthritic degenerative changes are again appreciated and similar to prior examination. Findings include increased sclerosis along the patellar surface with medial joint space narrowing and cortical irregularities to the femoral condyles. Bulky appearance to the lateral tibial spine appears stable. No acute fracture or dislocation. No obvious effusion. IMPRESSION: Early moderate osteoarthritic degenerative changes similar to prior examination. <Electronically signed by Eyad Hirsch > 03/01/21 [id number]
== END ==
LOC: SKLAB5 19:35
DX: M17.11 Unilateral primary osteoarthritis, right knee (principal)

== ENCOUNTER → 2021-03-03 | Outpatient (REF) ==
[~2021-03-03] MED LIST changes: +CELE20TA PO; +CIME-49 PO; +FLOM0.4C39 PO; +FURO20TA2 PO; +GNPLIQ18 PO; +INSULADS SC; +METF500T13 PO; +MIRA1POW3 PO; +SIME180C25 PO; +TAMS1CAP17; +TUMS500C PO
[2021-03-03 21:51] LABS: APPEARANCE, URINE HAZY (CLEAR); BACTERIA, URINE AUTO 2+ (NEGATIVE); BILIRUBIN, URINE AUTO NEGATIVE (NEGATIVE); BLOOD, URINE BLOOD 1+ (NEGATIVE); COLOR, URINE YELLOW (YELLOW); GLUCOSE, URINE (UA) AUTO NEGATIVE (NEGATIVE); KETONE, URINE AUTO NEGATIVE (NEGATIVE); LEUKOCYTE ESTERASE, URINE AUTO 1+ (NEGATIVE); NITRITE, URINE AUTO POSITIVE (NEGATIVE); PROTEIN, URINE AUTO NEGATIVE (NEGATIVE); RBC, URINE AUTO 2 /HPF (0-3); SPECIFIC GRAVITY URINE AUTO 1.011 (1.002-1.035); SQUAMOUS EPITHELIAL CELL UR AU 0 /HPF (0-6); UROBILINOGEN, URINE AUTO 0.2 mg/dL (0.0-2.0); WBC, URINE AUTO 16 /HPF (0-3)
== END ==
LOC: SKLAB5 19:17
PROVIDERS: ATTEND Nurse Practitioner Adult Health
DX: R30.0 Dysuria (principal)

== ENCOUNTER 2021-03-04 16:33 | Day surgery (SDC) | payer MEDICARE, MEDICAID ==
[~2021-03-04] VITALS: Ht 182.9 cm; Wt 100.0 kg
[~2021-03-04 16:33] MED LIST changes: -CELE20TA PO; -CIME-49 PO; -FLOM0.4C39 PO; -FURO20TA2 PO; -GNPLIQ18 PO; -INSULADS SC; -METF500T13 PO; -MIRA1POW3 PO; -SIME180C25 PO; -TAMS1CAP17; -TUMS500C PO
--- NOTE | 2021-03-04 16:59 | REP ---
INDICATION: DYSPNEA/COUGH. COMPARISON: 04/16/2019 also portable TECHNIQUE: Portable FINDINGS: The technique utilized in obtaining the radiograph has magnified the cardiac silhouette and accentuated the interstitial markings. There is mild cardiomegaly accentuated by technique. The patient is tilted rotated to the right. Scattered fibrotic changes are again noted status quo. No acute patchy parenchymal opacities or pleural effusions seem to have developed. IMPRESSION: There is no acute cardiopulmonary disease. There is mild cardiomegaly accentuated by technique. <Electronically signed by Sunil Infante > 03/04/21 [id number]
[2021-03-04 17:18] LABS: BASO % 0.4 % (0.0-1.0); EOS # 0.2 10^3/uL (0.0-0.5); EOS % 2.9 % (0.0-3.0); HEMATOCRIT 38.8 % (42.0-52.0); HEMOGLOBIN 12.5 g/dl (13.5-17.5); LYMPH # 1.8 10^3/uL (1.5-5.0); LYMPH % 23.5 % (24.0-44.0); MEAN CORPUSCULAR HEMOGLOBIN 30.7 pg (27.0-33.0); MEAN CORPUSCULAR HGB CONC 32.2 g/dl (32.0-36.5); MEAN CORPUSCULAR VOLUME 95.3 fl (80.0-96.0); MONO # 0.6 10^3/uL (0.0-0.8); MONO % 8.5 % (2.0-8.0); NEUTROPHILS # 4.8 10^3/uL (1.5-8.5); NEUTROPHILS % 64.3 % (36.0-66.0); PLATELET COUNT, AUTOMATED 238 10^3/uL (150-450); RED BLOOD COUNT 4.07 10^6/uL (4.30-6.10); WHITE BLOOD COUNT 7.5 10^3/uL (4.0-10.0)
[2021-03-04 17:28] LABS: INR 0.9; PROTHROMBIN TIME 12.4 SECONDS (12.5-14.3)
[2021-03-04 17:30] LABS: CALCIUM LEVEL 9.1 MG/DL (8.8-10.2); CREATININE FOR GFR 1.47 MG/DL (0.70-1.30); GLOMERULAR FILTRATION RATE 48.7 (>35); POTASSIUM SERUM 3.7 MEQ/L (3.5-5.1)
[2021-03-04 17:36] LABS: RSV AMPLIFICATION NEGATIVE (NEGATIVE)
[2021-03-04] MEDS ORDERED: propofoL 200 MG/20 ML VIAL As Ordered ONE (17:44)
[2021-03-04] MEDS ORDERED: fentaNYL 100 MCG/2 ML INJECTION (J3010) As Ordered ONE (17:44)
[2021-03-04] MEDS ORDERED: LIDOCAINE 2% INJ 100 MG/5 ML SYRINGE As Ordered ONE (17:44)
[2021-03-04] MEDS ORDERED: MIDAZOLAM INJ 2MG/2ML VIAL (J2250 PER 1MG) As Ordered ONE (17:44)
[2021-03-04] MEDS ORDERED: LIDOCAINE 2% 100MG/5ML SDV (FOR ANES.) As Ordered ONE (17:46)
[2021-03-04] MEDS ORDERED: LevoFLOXacin 500MG/100ML IV BAG (J1956 PER 250MG) As Ordered ONE (18:40)
--- NOTE | 2021-03-04 18:42 | SMCUROLCON ---
Urology Consultation General Date of Consultation 03/04/21 Reason For Consultation This patient is seen for Urinary Problem. History of Present Illness This is an 85 y/o M w/ a PMH significant for DM2, dementia, and BPH, who presented to the urology clinic earlier today for urinary retention. Several attempts for catheter placement failed and therefore office cystoscopy was performed. It was notable for a tight bulbar urethral stricture which could not be dilated in the office. He was sent to the ER in preparation for surgery to help get his bladder drained. Past Medical History Medical History see HPI Surgical Hstory cystoscopy, colonoscopy Allergies Allergies: Coded Allergies: No Known Allergies (Unverified , 07/14/19) Review of Systems General: Reports: Normal Appetite; Denies: Fatigue, Malaise Constitutional: Denies: Fever, Chills, Sweats, Weakness, Malaise Skin: Denies: Rash, Lesions, Breakdown, Nail Changes Pulmonary: Denies: Dyspnea, Cough Gastrointestinal: Denies: Nausea, Vomiting Genitourinary: Reports: Retention Psych: Reports: Mood Normal Physical Examination General Exam: Cooperative, No Acute Distress Chest Exam: Normal air movement Abdomen Exam: Other (suprapubic distention) Skin Exam: Nl turgor and temperature Neuro Exam: Normal Speech Psych Exam: Mental status NL, Mood NL Vital Signs/I&O Vital Signs Date Time Temp Pulse Resp B/P (MAP) Pulse Ox O2 Delivery O2 Flow Rate FiO2 03/04/21 16:34 97.2 63 18 182/88 (119) 98 Room Air Laboratory Data 24H Labs Laboratory Tests 2 03/04/21 16:47: Immature Granulocyte % (Auto) 0.4, Neutrophils (%) (Auto) 64.3, Lymphocytes (%) (Auto) 23.5L, Monocytes (%) (Auto) 8.5H, Eosinophils (%) (Auto) 2.9, Basophils (%) (Auto) 0.4, Neutrophils # (Auto) 4.8, Lymphocytes # (Auto) 1.8, Monocytes # (Auto) 0.6, Eosinophils # (Auto) 0.2, Basophils # (Auto) 0.0, Nucleated Red Blood Cells % (auto) 0.0, Prothrombin Time 12.4, Prothromb Time International Ratio 0.90, Anion Gap 5L, Glomerular Filtration Rate 48.7, Calcium Level 9.1 CBC/BMP Laboratory Tests 03/04/21 16:47 Assessment This is an 85 y/o M w/ urinary retention due to a narrow bulbar urethral stricture. I recommend that we take him to the OR for cystoscopy and direct vision internal urethrotomy. Informed consent was signed. Plan - to OR now - informed consent signed - levaquin 500mg IV OCOR - NPO - may return to [facility] postop w/ f/u in urology office in 2-3 wks DEDRA RONQUILLO MD Mar 04, 2021 17:42
[2021-03-04] MEDS ORDERED: LevoFLOXacin IV 500 MG in IV 1 EA IV ONE (18:45)
[2021-03-04] MEDS ORDERED: ROCURONIUM BROMIDE 50 MG/5 ML VIAL As Ordered ONE (18:59)
[2021-03-04] MEDS ORDERED: ETOMIDATE INJ 20MG/10ML VIAL As Ordered ONE (19:00)
[2021-03-04] MEDS ORDERED: METF500T13 PO ×2 (19:02→21:28)
[2021-03-04] MEDS ORDERED: TAMS1CAP17 (19:03)
[2021-03-04] MEDS ORDERED: ONDANSETRON 4MG/2ML VIAL As Ordered ONE (19:12)
[2021-03-04] MEDS ORDERED: dexameTHASONE 4 MG/ML 1ML VIAL (J1100 PER 1MG) As Ordered ONE (19:13)
[2021-03-04] MEDS ORDERED: SUGAMMADEX SODIUM 500 MG/5 ML VIAL (BRIDION) As Ordered ONE (19:22)
[2021-03-04] MEDS ORDERED: oxyCODONE 5MG TAB PO PRN (20:10)
[2021-03-04] MEDS ORDERED: ONDANSETRON 4MG/2ML VIAL IV PRN (20:10)
[2021-03-04] MEDS ORDERED: LR 1,000 ML IV SCH (20:10)
[2021-03-04] MEDS ORDERED: ACETAMINOPHEN TAB 650MG DOSE (2X325MG) PO PRN (20:10)
[2021-03-04] MEDS ORDERED: fentaNYL 100 MCG/2 ML INJECTION (J3010) IV PRN (20:10)
[2021-03-04 20:45] VITALS: BP 134/102
[2021-03-04] MEDS ORDERED: INSULADS SC (21:28)
[2021-03-04] MEDS ORDERED: CIME-49 PO (21:28)
[2021-03-04] MEDS ORDERED: TUMS500C PO (21:28)
[2021-03-04] MEDS ORDERED: CELE20TA PO (21:28)
[2021-03-04] MEDS ORDERED: MIRA1POW3 PO (21:28)
[2021-03-04] MEDS ORDERED: GNPLIQ18 PO (21:28)
[2021-03-04] MEDS ORDERED: SIME180C25 PO (21:28)
[2021-03-04] MEDS ORDERED: FLOM0.4C39 PO (21:28)
[2021-03-04] MEDS ORDERED: FURO20TA2 PO (21:28)
--- NOTE | 2021-03-05 07:55 | RO ---
OPERATIVE NOTE DATE OF OPERATION: 03/04/2021 PREOPERATIVE DIAGNOSIS: Urethral stricture. POSTOPERATIVE DIAGNOSIS: Urethral stricture. PROCEDURE: Cytoscopy, direct vision internal urethrotomy, catheter placement over a wire. SURGEON: Dallas Avila MD BRANCH MAKER: None. ANESTHESIA: General. OPERATIVE INDICATIONS: This is an 85-year-old male who was found to have a very tight bulbourethral stricture on office cystoscopy today. He is in urinary retention. He was brought to the operating room today for treatment. DESCRIPTION OF PROCEDURE: The patient was brought to the operating room and general anesthesia was induced. Prophylactic antibiotics were infused. He was placed in dorsal lithotomy position and prepped and draped in usual sterile fashion. At this point an urethrotome was advanced into the urethra and advanced toward the bladder. With this bulbar urethra there was a very narrow stricture. I began incising the stricture at 12 o'clock and even in doing so the urethra did not open up enough for me to advance the scope forward. Therefore I incised at 6 o'clock as well. I kept doing this until I was able to get the scope all the way into the bladder. The stricture appeared to be approximately 3 cm in length and was very dense. Once I was able to get the scope into the bladder a guidewire was advanced into the bladder. The scope was then removed and the guidewire was used to advance an 18-[place] Lou[place]-tip catheter over the wire and into the bladder. Once this was done the balloon was filled with 10 mL of sterile water and the guidewire was removed. The catheter was connected to gravity drainage and this marked the conclusion of the procedure. The patient was taken out of the dorsal lithotomy position, awakened from anesthesia and transported to the recovery room in stable condition. ESTIMATED BLOOD LOSS: 5 mL. COMPLICATIONS: None. SPECIMEN: None. PLAN: This patient will keep his catheter in place. I think ultimately he would benefit from having a suprapubic catheter placed. Will set this up on outpatient basis. ROLDAN
--- NOTE | 2021-03-05 22:45 | ECGEPIP ---
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
== END 2021-03-04 21:25 | disposition home or self-care (01) ==
LOC: M ED 16:33 → M SDC 16:34
PROVIDERS: ATTEND Urology
DX: N35.812 Other bulbous urethral stricture, male (principal); R33.9 Retention of urine, unspecified; I10 Essential (primary) hypertension; E78.5 Hyperlipidemia, unspecified; F03.90 Unspecified dementia, unspecified severity, without behavioral disturbance, psychotic disturbance, mood disturbance, and anxiety; E11.9 Type 2 diabetes mellitus without complications; N40.0 Benign prostatic hyperplasia without lower urinary tract symptoms; Z87.891 Personal history of nicotine dependence; Z79.899 Other long term (current) drug therapy
CPT/HCPCS: 36415; 52000; 52276; 71045; 80048; 85025; 85610; 87631; 93005; 99285; C1769; J1100; J1956; J2250; J2405; J3010

== ENCOUNTER → 2021-03-25 | Outpatient (REF) | payer MEDICARE, MEDICAID ==
[~2021-03-25] MED LIST changes: +CELE20TA PO; +CIME-49 PO; +FLOM0.4C39 PO; +FURO20TA2 PO; +GNPLIQ18 PO; +INSULADS SC; +METF500T13 PO; +MIRA1POW3 PO; +SIME180C25 PO; +TAMS1CAP17; +TUMS500C PO
[2021-03-25 10:29] LABS: HEMATOCRIT 34.5 % (42.0-52.0); HEMOGLOBIN 11.5 g/dl (13.5-17.5); MEAN CORPUSCULAR HEMOGLOBIN 32.1 pg (27.0-33.0); MEAN CORPUSCULAR HGB CONC 33.3 g/dl (32.0-36.5); MEAN CORPUSCULAR VOLUME 96.4 fl (80.0-96.0); PLATELET COUNT, AUTOMATED 247 10^3/uL (150-450); RED BLOOD COUNT 3.58 10^6/uL (4.30-6.10); WHITE BLOOD COUNT 6.8 10^3/uL (4.0-10.0)
[2021-03-25 10:43] LABS: INR 0.94; PROTHROMBIN TIME 12.8 SECONDS (12.5-14.3)
[2021-03-25 10:44] LABS: PARTIAL THROMBOPLASTIN TIME 36.1 SECONDS (24.2-38.5)
[2021-03-25 10:47] LABS: CALCIUM LEVEL 8.7 MG/DL (8.8-10.2); CREATININE FOR GFR 1.3 MG/DL (0.70-1.30); GLOMERULAR FILTRATION RATE 56.1 (>35); POTASSIUM SERUM 3.5 MEQ/L (3.5-5.1)
[2021-03-25 11:55] LABS: APPEARANCE, URINE CLEAR (CLEAR); BACTERIA, URINE AUTO NEGATIVE (NEGATIVE); BILIRUBIN, URINE AUTO NEGATIVE (NEGATIVE); BLOOD, URINE BLOOD 1+ (NEGATIVE); COLOR, URINE STRAW (YELLOW); GLUCOSE, URINE (UA) AUTO NEGATIVE (NEGATIVE); KETONE, URINE AUTO NEGATIVE (NEGATIVE); LEUKOCYTE ESTERASE, URINE AUTO NEGATIVE (NEGATIVE); NITRITE, URINE AUTO NEGATIVE (NEGATIVE); PROTEIN, URINE AUTO NEGATIVE (NEGATIVE); RBC, URINE AUTO 3 /HPF (0-3); SPECIFIC GRAVITY URINE AUTO 1.008 (1.002-1.035); SQUAMOUS EPITHELIAL CELL UR AU 0 /HPF (0-6); UROBILINOGEN, URINE AUTO 0.2 mg/dL (0.0-2.0); WBC, URINE AUTO 2 /HPF (0-3)
== END ==
LOC: SKLAB5 07:53
DX: Z01.818 Encounter for other preprocedural examination (principal); N35.919 Unspecified urethral stricture, male, unspecified site; Z79.899 Other long term (current) drug therapy

== ENCOUNTER → 2021-03-31 | Outpatient (REF) | payer MEDICARE, MEDICAID ==
[2021-03-31 15:22] LABS: RSV AMPLIFICATION NEGATIVE (NEGATIVE)
== END ==
LOC: SKLAB2 11:40 → SKLAB5 11:40
DX: Z01.818 Encounter for other preprocedural examination (principal); Z20.822 Contact with and (suspected) exposure to COVID-19

== ENCOUNTER 2021-04-02 06:12 | Day surgery (SDC) | payer MEDICARE, MEDICAID ==
[~2021-04-02] VITALS: Ht 175.3 cm; Wt 91.6 kg
[~2021-04-02 06:12] MED LIST changes: +LIDOCAINE 1% MDV 20ML VIAL SQ PRN; +LR 1,000 ML IV ONE; +ceFAZolin SOD 2 GM in IV 1 EA IV ONE
[2021-04-02] MEDS ORDERED: propofoL 200 MG/20 ML VIAL As Ordered ONE (07:04)
[2021-04-02] MEDS ORDERED: ACETAMINOPHEN 1000MG 100ML IV BTL (OFIRMEV) (J0131 PER 10MG) As Ordered ONE (07:04)
[2021-04-02] MEDS ORDERED: ONDANSETRON 4MG/2ML VIAL As Ordered ONE (07:04)
[2021-04-02] MEDS ORDERED: SUGAMMADEX SODIUM 500 MG/5 ML VIAL (BRIDION) As Ordered ONE (07:04)
[2021-04-02] MEDS ORDERED: dexameTHASONE 4 MG/ML 1ML VIAL (J1100 PER 1MG) As Ordered ONE (07:04)
[2021-04-02] MEDS ORDERED: fentaNYL 100 MCG/2 ML INJECTION (J3010) As Ordered ONE (07:04)
[2021-04-02] MEDS ORDERED: ROCURONIUM BROMIDE 50 MG/5 ML VIAL As Ordered ONE (07:04)
[2021-04-02] MEDS ORDERED: LIDOCAINE 2% 100MG/5ML SDV (FOR ANES.) As Ordered ONE (07:04)
[2021-04-02] MEDS ORDERED: MIDAZOLAM INJ 2MG/2ML VIAL (J2250 PER 1MG) As Ordered ONE (07:05)
[2021-04-02] MEDS ORDERED: NITR100C2 PO (07:06)
[2021-04-02] MEDS ORDERED: BUPIVACAINE HCL 0.25% 30ML VIAL As Ordered ONE (07:19)
[2021-04-02] MEDS ORDERED: LIDOCAINE 1% SDV 30ML VIAL As Ordered ONE (07:19)
[2021-04-02] MEDS ORDERED: VANCOMYCIN 1000MG/20ML VIAL As Ordered ONE (07:53)
[2021-04-02] MEDS ORDERED: GENTAMICIN SULF 80MG/2ML VIAL As Ordered ONE (07:54)
[2021-04-02] MEDS ORDERED: ePHEDrine SULFATE 25 MG/5 ML(5MG/ML) SYRINGE As Ordered ONE (08:04)
[2021-04-02] MEDS ORDERED: PHENYLephrine 500MCG 5ML (100MCG/ML) SYRINGE As Ordered ONE (08:04)
[2021-04-02] MEDS ORDERED: ONDANSETRON 4MG/2ML VIAL IV PRN (09:40)
[2021-04-02] MEDS ORDERED: METOCLOPRAMIDE INJ 10MG/2ML VIAL (J2765 PER 1) IV PRN (09:40)
[2021-04-02] MEDS ORDERED: LR 1,000 ML IV SCH (09:40)
[2021-04-02] MEDS ORDERED: LABETALOL 100MG/20ML VIAL IV PRN (09:40)
[2021-04-02] MEDS ORDERED: PERCOCET 5MG/325MG TAB PO PRN ×2 (09:40→10:00)
--- NOTE | 2021-04-02 09:43 | ROOPDOC ---
[facility] Report Of Operation Report of Operation DATE OF PROCEDURE: 04/02/21 PREPROCEDURE DIAGNOSIS: Urethral Stricture. POSTPROCEDURE DIAGNOSIS: Urethral Stricture. PROCEDURE: Open cystotomy with suprapubic catheter placement. SURGEON: Dedra Ronquillo MD RESTAURANT MANAGER: None. ANESTHESIA: General. OPERATIVE INDICATIONS: This is an 85-year-old male with a significant bulbar urethral stricture. This was treated recently but given concern for recurrence of the stricture and then difficulty with urethral catheter changes, it was recommended that he undergo the above procedure. He was brought to the operating room today for treatment. DESCRIPTION OF PROCEDURE: The patient was brought to the operating room and general anesthesia was administered. Culture specific antibiotics were infused. He was placed in the supine position and prepped and draped in the usual sterile fashion. At this point, an 18Fr Bel[place] catheter was inserted in the urethra and advanced into the bladder. The balloon was filled with 10mL of sterile water and the catheter was clamped off. At this point, an approximately 5-6 cm suprapubic incision was made. We then dissected down through the subcutaneous tissues. The rectus fascia was then opened using electrocautery and then the bellies of the rectus muscle were bluntly spread. At this point, the bladder was then filled with normal saline using the urethral catheter. At this point, we dissected down to the bladder. The bladder was then palpated and then a syringe was utilized to aspirate what appeared to be the bladder. Clear fluid did aspirate into the syringe. This confirmed we were indeed staring at the bladder. I then used a #2-[address] a pursestring stitch through the dome of the bladder. At this point, a cystotomy was then made in the middle of the pursestring stitch and then clear fluid drained out. I then inserted a #20-[place] catheter into the cystostomy and the balloon was filled with 7 mL of sterile water. The pursestring stitch was then tied down around the #20-[place] catheter. Once this was done, I then irrigated the pelvis around the bladder several times and then suctioned out the fluid. We then closed the rectus fascia with interrupted #1 non-looped PDS sutures in a figure -of-eight fashion. Once the fascia was closed, the subcutaneous tissues were reapproximated using interrupted #3-0 Vicryl suture. The skin was then closed around the suprapubic catheter using a running #4-0 Monocryl subcuticular suture. The suprapubic catheter was then further secured to the skin with a #2-0 Prolene suture. At this point, Dermabond and dressings were applied, and this marked the conclusion of the procedure. The suprapubic catheter was connected to gravity drainage and the urethral catheter was removed. The patient was then awakened from anesthesia and transported to the recovery room in stable condition. Estimated blood loss: 10 mL. Complications: None. Specimens: None. PLAN: The patient will follow up in clinic in 6 weeks for his first suprapubic catheter change. DEDRA RONQUILLO MD April 02, 2021 09:43
[2021-04-02] MEDS: fentaNYL 100 MCG/2 ML INJECTION (J3010) IV PRN ×4 (09:45→10:05)
[2021-04-02 12:20] VITALS: BP 141/65
== END 2021-04-02 12:42 | disposition home or self-care (01) ==
LOC: M SDC 06:12
PROVIDERS: ATTEND Urology
DX: N35.911 Unspecified urethral stricture, male, meatal (principal); R33.9 Retention of urine, unspecified; I12.9 Hypertensive chronic kidney disease with stage 1 through stage 4 chronic kidney disease, or unspecified chronic kidney disease; E78.5 Hyperlipidemia, unspecified; E11.9 Type 2 diabetes mellitus without complications; D64.9 Anemia, unspecified; M17.0 Bilateral primary osteoarthritis of knee; F03.90 Unspecified dementia, unspecified severity, without behavioral disturbance, psychotic disturbance, mood disturbance, and anxiety; N18.30 Chronic kidney disease, stage 3 unspecified; Z79.899 Other long term (current) drug therapy; Z79.4 Long term (current) use of insulin; Z79.2 Long term (current) use of antibiotics
CPT/HCPCS: 51040; J0131; J0690; J1100; J1580; J2250; J2370; J2405; J3010; J3370

== ENCOUNTER → 2021-04-10 | Outpatient (REF) | payer MEDICARE, MEDICAID ==
[~2021-04-10] MED LIST changes: -LIDOCAINE 1% MDV 20ML VIAL SQ PRN; -LR 1,000 ML IV ONE; +NITR100C2 PO; -ceFAZolin SOD 2 GM in IV 1 EA IV ONE
== END ==
LOC: EEVIPCON → SKLAB5 07:56
DX: D64.9 Anemia, unspecified (principal)

== ENCOUNTER → 2021-05-08 | Outpatient (REF) | payer MEDICARE, MEDICAID ==
[2021-05-08 10:14] LABS: BILIRUBIN,TOTAL 0.3 MG/DL (0.2-1.0); CALCIUM LEVEL 8.3 MG/DL (8.8-10.2); CHOLESTEROL RISK RATIO 2.708 (<5); CREATININE FOR GFR 1.62 MG/DL (0.70-1.30); GLOMERULAR FILTRATION RATE 43.5 (>35); POTASSIUM SERUM 3.6 MEQ/L (3.5-5.1); TOTAL PROTEIN 6.3 GM/DL (6.4-8.2)
[2021-05-08 10:15] LABS: ALBUMIN 3.3 GM/DL (3.2-5.2)
== END ==
LOC: SKLAB5 08:51
DX: E11.9 Type 2 diabetes mellitus without complications (principal); D64.9 Anemia, unspecified; N19 Unspecified kidney failure

== ENCOUNTER → 2021-06-26 | Outpatient (REF) | payer MEDICARE, MEDICAID ==
[2021-06-26 09:39] LABS: PHOSPHORUS LEVEL 3.4 MG/DL (2.5-4.9)
[2021-06-26 11:50] LABS: PTH INTACT 93.9 PG/ML (18.5-88.0); TOTAL 25(OH) VITAMIN D 37.1 NG/ML (30.0-100.0)
== END ==
LOC: SKLAB5 07:19
DX: Z13.89 Encounter for screening for other disorder (principal); Z79.899 Other long term (current) drug therapy

== ENCOUNTER → 2021-07-10 | Outpatient (REF) | payer MEDICARE, MEDICAID ==
[~2021-07-10] MED LIST changes: -KLOR10TA76 PO; +POTA-136 PO
== END ==
LOC: SKLAB5 07:56
PROVIDERS: ATTEND Internal Medicine
DX: D64.9 Anemia, unspecified (principal)

== ENCOUNTER → 2021-07-23 | Outpatient (REF) | payer MEDICARE, MEDICAID ==
[2021-07-23 11:40] LABS: HEMOGLOBIN 10.7 g/dl (13.5-17.5); MEAN CORPUSCULAR HGB CONC 32.4 g/dl (32.0-36.5); MEAN CORPUSCULAR VOLUME 92.4 fl (80.0-96.0); PLATELET COUNT, AUTOMATED 219 10^3/uL (150-450); RED BLOOD COUNT 3.57 10^6/uL (4.30-6.10); WHITE BLOOD COUNT 5.6 10^3/uL (4.0-10.0)
[2021-07-23 11:57] LABS: CALCIUM LEVEL 8.1 MG/DL (8.8-10.2); CREATININE FOR GFR 1.52 MG/DL (0.70-1.30); GLOMERULAR FILTRATION RATE 46.9 (>35)
[2021-07-23 12:16] LABS: APPEARANCE, URINE CLEAR (CLEAR); BACTERIA, URINE AUTO NEGATIVE (NEGATIVE); BILIRUBIN, URINE AUTO NEGATIVE (NEGATIVE); BLOOD, URINE BLOOD 1+ (NEGATIVE); COLOR, URINE COLORLESS (YELLOW); GLUCOSE, URINE (UA) AUTO NEGATIVE (NEGATIVE); KETONE, URINE AUTO NEGATIVE (NEGATIVE); LEUKOCYTE ESTERASE, URINE AUTO TRACE (NEGATIVE); NITRITE, URINE AUTO NEGATIVE (NEGATIVE); PROTEIN, URINE AUTO NEGATIVE (NEGATIVE); RBC, URINE AUTO 4 /HPF (0-3); SPECIFIC GRAVITY URINE AUTO 1.004 (1.002-1.035); SQUAMOUS EPITHELIAL CELL UR AU 0 /HPF (0-6); UROBILINOGEN, URINE AUTO 0.2 mg/dL (0.0-2.0); WBC, URINE AUTO 3 /HPF (0-3)
== END ==
LOC: SKLAB5 10:16
PROVIDERS: ATTEND Internal Medicine
DX: R10.30 Lower abdominal pain, unspecified (principal)

== ENCOUNTER → 2021-07-25 | Outpatient (CLI) | payer MEDICARE, MEDICAID ==
[~2021-07-25] MED LIST changes: +GASTROGRAFIN SOLUTION 30ML (Q9963) As Ordered ONE; +ISOVUE-370 76% 100ML VIAL As Ordered ONE
== END ==
LOC: M RAD 12:40
PROVIDERS: ATTEND Nurse Practitioner Adult Health
DX: R10.2 Pelvic and perineal pain (principal)
CPT/HCPCS: 74177; Q9963; Q9967

== ENCOUNTER → 2021-08-14 | Outpatient (REF) | payer MEDICARE, MEDICAID ==
[~2021-08-14] MED LIST changes: -GASTROGRAFIN SOLUTION 30ML (Q9963) As Ordered ONE; -ISOVUE-370 76% 100ML VIAL As Ordered ONE
[2021-08-14 14:17] LABS: HEMATOCRIT 35.9 % (42.0-52.0); HEMOGLOBIN 11.9 g/dl (13.5-17.5); MEAN CORPUSCULAR HEMOGLOBIN 30.8 pg (27.0-33.0); MEAN CORPUSCULAR HGB CONC 33.1 g/dl (32.0-36.5); PLATELET COUNT, AUTOMATED 242 10^3/uL (150-450); RED BLOOD COUNT 3.86 10^6/uL (4.30-6.10); WHITE BLOOD COUNT 7.1 10^3/uL (4.0-10.0)
[2021-08-14 14:40] LABS: HEMOGLOBIN A1c 6.4 %
== END ==
LOC: SKLAB5 06:55
PROVIDERS: ATTEND Internal Medicine
DX: E11.9 Type 2 diabetes mellitus without complications (principal)

== ENCOUNTER → 2021-08-26 | Outpatient (REF) | payer MEDICARE, MEDICAID | LOC: SKLAB5 11:17 | PROVIDERS: ATTEND Internal Medicine | DX: Z20.822 Contact with and (suspected) exposure to COVID-19 (principal) ==

== ENCOUNTER → 2021-08-28 | Outpatient (REF) | payer MEDICARE, MEDICAID | LOC: SKLAB5 09:59 | PROVIDERS: ATTEND Internal Medicine | DX: Z20.822 Contact with and (suspected) exposure to COVID-19 (principal) ==

== ENCOUNTER → 2021-09-01 | Outpatient (REF) | payer MEDICARE, MEDICAID | LOC: SKLAB5 06:10 | PROVIDERS: ATTEND Internal Medicine | DX: Z20.822 Contact with and (suspected) exposure to COVID-19 (principal) ==

== ENCOUNTER → 2021-09-02 | Outpatient (REF) | payer MEDICARE, MEDICAID ==
[2021-09-02 15:55] LABS: HEMATOCRIT 34.1 % (42.0-52.0); HEMOGLOBIN 11.5 g/dl (13.5-17.5); MEAN CORPUSCULAR HGB CONC 33.7 g/dl (32.0-36.5); PLATELET COUNT, AUTOMATED 191 10^3/uL (150-450); RED BLOOD COUNT 3.59 10^6/uL (4.30-6.10); WHITE BLOOD COUNT 5.3 10^3/uL (4.0-10.0)
[2021-09-02 16:14] LABS: ALBUMIN 3.3 GM/DL (3.2-5.2); BILIRUBIN,TOTAL 0.4 MG/DL (0.2-1.0); C REACTIVE PROTEIN QUANTITATIV 5.33 MG/DL (0.00-0.30); CALCIUM LEVEL 8.5 MG/DL (8.8-10.2); CREATININE FOR GFR 1.53 MG/DL (0.70-1.30); GLOMERULAR FILTRATION RATE 46.4 (>35); POTASSIUM SERUM 3.7 MEQ/L (3.5-5.1); TOTAL PROTEIN 6.5 GM/DL (6.4-8.2)
== END ==
LOC: SKLAB5 06:36
PROVIDERS: ATTEND Internal Medicine
DX: U07.1 COVID-19 (principal); Z79.899 Other long term (current) drug therapy

== ENCOUNTER → 2021-09-03 | Outpatient (REF) | payer MEDICARE, MEDICAID ==
[2021-09-03 12:52] LABS: HEMATOCRIT 33.5 % (42.0-52.0); HEMOGLOBIN 11.2 g/dl (13.5-17.5); MEAN CORPUSCULAR HEMOGLOBIN 31.3 pg (27.0-33.0); MEAN CORPUSCULAR HGB CONC 33.4 g/dl (32.0-36.5); MEAN CORPUSCULAR VOLUME 93.6 fl (80.0-96.0); PLATELET COUNT, AUTOMATED 163 10^3/uL (150-450); RED BLOOD COUNT 3.58 10^6/uL (4.30-6.10); WHITE BLOOD COUNT 4.6 10^3/uL (4.0-10.0)
[2021-09-03 13:17] LABS: BILIRUBIN,TOTAL 0.5 MG/DL (0.2-1.0); CALCIUM LEVEL 8.4 MG/DL (8.8-10.2); CREATININE FOR GFR 1.35 MG/DL (0.70-1.30); GLOMERULAR FILTRATION RATE 53.6 (>35); POTASSIUM SERUM 3.6 MEQ/L (3.5-5.1); TOTAL PROTEIN 6.6 GM/DL (6.4-8.2)
== END ==
LOC: SKLAB5 06:32
PROVIDERS: ATTEND Internal Medicine
DX: U07.1 COVID-19 (principal); Z79.899 Other long term (current) drug therapy

== ENCOUNTER → 2021-09-04 | Outpatient (REF) | payer MEDICARE, MEDICAID ==
--- NOTE | 2021-09-04 14:30 | REP ---
INDICATION: COVID 19. COMPARISON: Multiple the latest 03/04/2021 also portable TECHNIQUE: Portable FINDINGS: The technique utilized in obtaining the radiograph has magnified the cardiac silhouette and accentuated the interstitial markings. Once again, there is evidence of mild cardiomegaly accentuated by technique. The lung norris are essentially stable. No acute patchy parenchymal opacities or pleural effusions have developed. The osseous structures are stable and intact. IMPRESSION: No evidence of acute cardiopulmonary disease. Findings as described above. <Electronically signed by Sunil Infante > 09/04/21 [id number]
== END ==
LOC: SKLAB2 12:30
PROVIDERS: ATTEND Internal Medicine
DX: U07.1 COVID-19 (principal); I51.7 Cardiomegaly

== ENCOUNTER → 2021-09-05 | Outpatient (REF) | payer MEDICARE, MEDICAID ==
[2021-09-05 07:02] LABS: HEMATOCRIT 30.5 % (42.0-52.0); HEMOGLOBIN 10.4 g/dl (13.5-17.5); MEAN CORPUSCULAR HEMOGLOBIN 31.6 pg (27.0-33.0); MEAN CORPUSCULAR HGB CONC 34.1 g/dl (32.0-36.5); MEAN CORPUSCULAR VOLUME 92.7 fl (80.0-96.0); PLATELET COUNT, AUTOMATED 195 10^3/uL (150-450); RED BLOOD COUNT 3.29 10^6/uL (4.30-6.10); WHITE BLOOD COUNT 7.1 10^3/uL (4.0-10.0)
[2021-09-05 07:32] LABS: ALBUMIN 2.9 GM/DL (3.2-5.2); BILIRUBIN,TOTAL 0.3 MG/DL (0.2-1.0); CALCIUM LEVEL 8.1 MG/DL (8.8-10.2); CREATININE FOR GFR 1.24 MG/DL (0.70-1.30); GLOMERULAR FILTRATION RATE 59.1 (>35); POTASSIUM SERUM 3.3 MEQ/L (3.5-5.1); TOTAL PROTEIN 5.9 GM/DL (6.4-8.2)
== END ==
LOC: SKLAB2 07:19
PROVIDERS: ATTEND Internal Medicine
DX: U07.1 COVID-19 (principal); Z79.899 Other long term (current) drug therapy

== ENCOUNTER → 2021-09-08 | Outpatient (REF) | payer MEDICARE, MEDICAID ==
[2021-09-08 09:32] LABS: HEMATOCRIT 34.6 % (42.0-52.0); HEMOGLOBIN 11.6 g/dl (13.5-17.5); MEAN CORPUSCULAR HEMOGLOBIN 31.5 pg (27.0-33.0); MEAN CORPUSCULAR HGB CONC 33.5 g/dl (32.0-36.5); PLATELET COUNT, AUTOMATED 216 10^3/uL (150-450); RED BLOOD COUNT 3.68 10^6/uL (4.30-6.10); WHITE BLOOD COUNT 6.5 10^3/uL (4.0-10.0)
[2021-09-08 10:28] LABS: ALBUMIN 2.9 GM/DL (3.2-5.2); BILIRUBIN,TOTAL 0.3 MG/DL (0.2-1.0); CALCIUM LEVEL 8.5 MG/DL (8.8-10.2); CREATININE FOR GFR 1.23 MG/DL (0.70-1.30); GLOMERULAR FILTRATION RATE 59.7 (>35); POTASSIUM SERUM 3.5 MEQ/L (3.5-5.1); TOTAL PROTEIN 6.1 GM/DL (6.4-8.2)
== END ==
LOC: SKLAB2 09:08 → SKLAB5 09:08
PROVIDERS: ATTEND Internal Medicine
DX: U07.1 COVID-19 (principal); Z79.899 Other long term (current) drug therapy

== ENCOUNTER → 2021-09-10 | Outpatient (REF) | payer MEDICARE, MEDICAID ==
[2021-09-10 09:59] LABS: HEMATOCRIT 32.1 % (42.0-52.0); HEMOGLOBIN 10.7 g/dl (13.5-17.5); MEAN CORPUSCULAR HEMOGLOBIN 30.9 pg (27.0-33.0); MEAN CORPUSCULAR HGB CONC 33.3 g/dl (32.0-36.5); MEAN CORPUSCULAR VOLUME 92.8 fl (80.0-96.0); PLATELET COUNT, AUTOMATED 235 10^3/uL (150-450); RED BLOOD COUNT 3.46 10^6/uL (4.30-6.10); WHITE BLOOD COUNT 6.7 10^3/uL (4.0-10.0)
[2021-09-10 10:32] LABS: BILIRUBIN,TOTAL 0.4 MG/DL (0.2-1.0); CALCIUM LEVEL 8.5 MG/DL (8.8-10.2); CREATININE FOR GFR 1.26 MG/DL (0.70-1.30); POTASSIUM SERUM 3.3 MEQ/L (3.5-5.1); TOTAL PROTEIN 5.9 GM/DL (6.4-8.2)
== END ==
LOC: SKLAB2 07:23
PROVIDERS: ATTEND Internal Medicine
DX: U07.1 COVID-19 (principal); Z79.899 Other long term (current) drug therapy

== ENCOUNTER → 2021-09-12 | Outpatient (REF) | payer MEDICARE, MEDICAID ==
[2021-09-12 11:38] LABS: HEMATOCRIT 34.3 % (42.0-52.0); HEMOGLOBIN 11.2 g/dl (13.5-17.5); MEAN CORPUSCULAR HEMOGLOBIN 30.6 pg (27.0-33.0); MEAN CORPUSCULAR HGB CONC 32.7 g/dl (32.0-36.5); MEAN CORPUSCULAR VOLUME 93.7 fl (80.0-96.0); PLATELET COUNT, AUTOMATED 250 10^3/uL (150-450); RED BLOOD COUNT 3.66 10^6/uL (4.30-6.10); WHITE BLOOD COUNT 8.2 10^3/uL (4.0-10.0)
[2021-09-12 12:46] LABS: BILIRUBIN,TOTAL 0.3 MG/DL (0.2-1.0); CALCIUM LEVEL 8.9 MG/DL (8.8-10.2); CREATININE FOR GFR 1.37 MG/DL (0.70-1.30); GLOMERULAR FILTRATION RATE 52.7 (>35); POTASSIUM SERUM 3.4 MEQ/L (3.5-5.1); TOTAL PROTEIN 6.5 GM/DL (6.4-8.2)
== END ==
LOC: SKLAB2 08:36
PROVIDERS: ATTEND Neuromusculoskeletal Medicine & OMM
DX: U07.1 COVID-19 (principal); Z79.899 Other long term (current) drug therapy

== ENCOUNTER → 2021-09-15 | Outpatient (REF) | payer MEDICARE, MEDICAID ==
[2021-09-15 12:21] LABS: CALCIUM LEVEL 9.2 MG/DL (8.8-10.2); CREATININE FOR GFR 1.87 MG/DL (0.70-1.30); GLOMERULAR FILTRATION RATE 36.8 (>35); POTASSIUM SERUM 4.5 MEQ/L (3.5-5.1)
== END ==
LOC: SKLAB2 11:23
PROVIDERS: ATTEND Internal Medicine
DX: U07.1 COVID-19 (principal); Z79.899 Other long term (current) drug therapy

== ENCOUNTER → 2021-10-01 | Outpatient (REF) | payer MEDICARE, MEDICAID ==
[2021-10-01 11:03] LABS: CALCIUM LEVEL 8.5 MG/DL (8.8-10.2); CREATININE FOR GFR 1.53 MG/DL (0.70-1.30); GLOMERULAR FILTRATION RATE 46.4 (>35); POTASSIUM SERUM 4.1 MEQ/L (3.5-5.1)
== END ==
LOC: SKLAB5 11:00
PROVIDERS: ATTEND Internal Medicine
DX: E11.9 Type 2 diabetes mellitus without complications (principal)

== ENCOUNTER → 2021-10-09 | Outpatient (REF) | payer MEDICARE, MEDICAID | LOC: SKLAB5 07:00 | PROVIDERS: ATTEND Internal Medicine | DX: D64.9 Anemia, unspecified (principal) ==

== ENCOUNTER → 2021-11-10 | Outpatient (REF) | payer MEDICARE, MEDICAID ==
[2021-11-10 15:06] LABS: APPEARANCE, URINE CLOUDY (CLEAR); BACTERIA, URINE AUTO NEGATIVE (NEGATIVE); BILIRUBIN, URINE AUTO NEGATIVE (NEGATIVE); BLOOD, URINE BLOOD 1+ (NEGATIVE); COLOR, URINE YELLOW (YELLOW); GLUCOSE, URINE (UA) AUTO 1+ mg/dL (NEGATIVE); KETONE, URINE AUTO NEGATIVE (NEGATIVE); LEUKOCYTE ESTERASE, URINE AUTO 2+ (NEGATIVE); NITRITE, URINE AUTO NEGATIVE (NEGATIVE); PROTEIN, URINE AUTO NEGATIVE (NEGATIVE); RBC, URINE AUTO 10 /HPF (0-3); SPECIFIC GRAVITY URINE AUTO 1.011 (1.002-1.035); SQUAMOUS EPITHELIAL CELL UR AU 0 /HPF (0-6); URIC ACID CRYSTALS SMALL; UROBILINOGEN, URINE AUTO 0.2 mg/dL (0.0-2.0); WBC, URINE AUTO 23 /HPF (0-3)
== END ==
LOC: SKLAB5 12:18
PROVIDERS: ATTEND Internal Medicine
DX: R41.89 Other symptoms and signs involving cognitive functions and awareness (principal); Z79.899 Other long term (current) drug therapy

== ENCOUNTER 2022-01-06 22:46 | Day surgery (SDC) | payer MEDICARE, MEDICAID ==
[2022-01-07 04:56] LABS: RSV AMPLIFICATION NEGATIVE (NEGATIVE)
[2022-01-07] MEDS ORDERED: CEPH250T PO (05:56)
[2022-01-07] MEDS ORDERED: HOME MED LIST COMPLETE! XX SCH (06:00)
[2022-01-07] MEDS ORDERED: ceFAZolin SOD 2 GM in IV 1 EA IV ONE (06:00)
[2022-01-07] MEDS ORDERED: fentaNYL 100 MCG/2 ML INJECTION As Ordered ONE (08:50)
[2022-01-07] MEDS ORDERED: ONDANSETRON 4MG/2ML VIAL As Ordered ONE (08:50)
[2022-01-07] MEDS ORDERED: LIDOCAINE 2% 100MG/5ML SDV (FOR ANES.) As Ordered ONE (08:50)
[2022-01-07] MEDS ORDERED: dexameTHASONE 4 MG/ML 1ML VIAL (J1100 PER 1MG) As Ordered ONE (08:50)
[2022-01-07] MEDS ORDERED: propofoL 200 MG/20 ML VIAL As Ordered ONE (08:50)
[2022-01-07] MEDS ORDERED: ceFAZolin 2 GM/D5W 50 ML IV BAG (J0690 PER 500MG) As Ordered ONE (09:03)
[2022-01-07] MEDS ORDERED: ePHEDrine SULFATE 25 MG/5 ML(5MG/ML) SYRINGE As Ordered ONE (09:59)
[2022-01-07] MEDS ORDERED: LR 1,000 ML IV SCH (10:25)
[2022-01-07] MEDS ORDERED: ONDANSETRON 4MG/2ML VIAL IV PRN (10:25)
[2022-01-07] MEDS ORDERED: fentaNYL 100 MCG/2 ML INJECTION IV PRN (10:25)
[2022-01-07] MEDS ORDERED: ACETAMINOPHEN TAB 650MG DOSE (2X325MG) PO PRN (10:30)
[2022-01-07 10:44] VITALS: BP 173/81
== END 2022-01-07 11:45 | disposition home or self-care (01) ==
LOC: M ED 22:46 → M SDC 22:47 → M ED 01-07 07:51 → M SDC 01-07 11:45
PROVIDERS: ATTEND Urology
DX: R33.9 Retention of urine, unspecified (principal); N35.919 Unspecified urethral stricture, male, unspecified site; T83.020A Displacement of cystostomy catheter, initial encounter; Y73.2 Prosthetic and other implants, materials and accessory gastroenterology and urology devices associated with adverse incidents; I10 Essential (primary) hypertension; I20.9 Angina pectoris, unspecified; E78.5 Hyperlipidemia, unspecified; E11.9 Type 2 diabetes mellitus without complications; K21.9 Gastro-esophageal reflux disease without esophagitis; F03.90 Unspecified dementia, unspecified severity, without behavioral disturbance, psychotic disturbance, mood disturbance, and anxiety; Z79.899 Other long term (current) drug therapy; Z79.4 Long term (current) use of insulin
CPT/HCPCS: 51710; 87631; 99284; C1769; J0690; J1100; J2405; J3010

== ENCOUNTER → 2022-01-22 | Outpatient (REF) | payer MEDICARE, MEDICAID ==
[~2022-01-22] MED LIST changes: +CEPH250T PO
== END ==
LOC: SKLAB5 07:35
PROVIDERS: ATTEND Internal Medicine
DX: D64.9 Anemia, unspecified (principal)

== ENCOUNTER → 2022-02-19 | Outpatient (REF) | payer MEDICARE, MEDICAID ==
[2022-02-19 11:55] LABS: HEMATOCRIT 33.8 % (42.0-52.0); HEMOGLOBIN 11.4 g/dl (13.5-17.5); MEAN CORPUSCULAR HEMOGLOBIN 31.6 pg (27.0-33.0); MEAN CORPUSCULAR HGB CONC 33.7 g/dl (32.0-36.5); MEAN CORPUSCULAR VOLUME 93.6 fl (80.0-96.0); PLATELET COUNT, AUTOMATED 208 10^3/uL (150-450); RED BLOOD COUNT 3.61 10^6/uL (4.30-6.10); WHITE BLOOD COUNT 5.6 10^3/uL (4.0-10.0)
[2022-02-19 12:52] LABS: HEMOGLOBIN A1c 8.3 %
== END ==
LOC: SKLAB5 06:00
PROVIDERS: ATTEND Internal Medicine
DX: E11.9 Type 2 diabetes mellitus without complications (principal); Z12.5 Encounter for screening for malignant neoplasm of prostate
CPT/HCPCS: 36415; 83036; 85027; G0103

== ENCOUNTER → 2022-03-05 | Outpatient (REF) | payer MEDICARE, MEDICAID ==
[2022-03-05 15:19] LABS: HEMATOCRIT 37.1 % (42.0-52.0); HEMOGLOBIN 12.3 g/dl (13.5-17.5); MEAN CORPUSCULAR HEMOGLOBIN 30.5 pg (27.0-33.0); MEAN CORPUSCULAR HGB CONC 33.2 g/dl (32.0-36.5); MEAN CORPUSCULAR VOLUME 92.1 fl (80.0-96.0); PLATELET COUNT, AUTOMATED 227 10^3/uL (150-450); RED BLOOD COUNT 4.03 10^6/uL (4.30-6.10); WHITE BLOOD COUNT 6.8 10^3/uL (4.0-10.0)
[2022-03-05 15:25] LABS: APPEARANCE, URINE CLEAR (CLEAR); BACTERIA, URINE AUTO 1+ (NEGATIVE); BILIRUBIN, URINE AUTO NEGATIVE (NEGATIVE); BLOOD, URINE BLOOD 3+ (NEGATIVE); COLOR, URINE YELLOW (YELLOW); GLUCOSE, URINE (UA) AUTO 3+ mg/dL (NEGATIVE); KETONE, URINE AUTO NEGATIVE (NEGATIVE); LEUKOCYTE ESTERASE, URINE AUTO TRACE (NEGATIVE); MUCUS, URINE SMALL (NEGATIVE); NITRITE, URINE AUTO NEGATIVE (NEGATIVE); PROTEIN, URINE AUTO NEGATIVE (NEGATIVE); RBC, URINE AUTO 12 /HPF (0-3); SPECIFIC GRAVITY URINE AUTO 1.013 (1.002-1.035); SQUAMOUS EPITHELIAL CELL UR AU 0 /HPF (0-6); UROBILINOGEN, URINE AUTO 0.2 mg/dL (0.0-2.0); WBC, URINE AUTO 2 /HPF (0-3)
[2022-03-05 15:42] LABS: CALCIUM LEVEL 8.4 MG/DL (8.8-10.2); CREATININE FOR GFR 1.69 MG/DL (0.70-1.30); GLOMERULAR FILTRATION RATE 41.4 (>35); POTASSIUM SERUM 3.9 MEQ/L (3.5-5.1)
== END ==
LOC: SKLAB5 14:41
PROVIDERS: ATTEND Internal Medicine
DX: R55 Syncope and collapse (principal); R52 Pain, unspecified

== ENCOUNTER → 2022-04-28 | Outpatient (REF) | payer MEDICARE, MEDICAID | LOC: SKLAB5 06:00 | PROVIDERS: ATTEND Internal Medicine | DX: D64.9 Anemia, unspecified (principal) ==

== ENCOUNTER → 2022-05-27 | Outpatient (REF) | payer MEDICARE, MEDICAID ==
[2022-05-26 10:51] LABS: PHOSPHORUS LEVEL 3.9 MG/DL (2.5-4.9); PTH INTACT 87.1 PG/ML (18.5-88.0); TOTAL 25(OH) VITAMIN D 19.8 NG/ML (30.0-100.0)
== END ==
LOC: SKLAB5 10:06
PROVIDERS: ATTEND Internal Medicine
DX: E21.3 Hyperparathyroidism, unspecified (principal); E56.9 Vitamin deficiency, unspecified

== ENCOUNTER → 2022-06-10 | Outpatient (REF) | payer MEDICARE, MEDICAID ==
[2022-06-10 12:55] LABS: HEMATOCRIT 36.2 % (42.0-52.0); MEAN CORPUSCULAR HEMOGLOBIN 30.8 pg (27.0-33.0); MEAN CORPUSCULAR HGB CONC 33.1 g/dl (32.0-36.5); MEAN CORPUSCULAR VOLUME 93.1 fl (80.0-96.0); PLATELET COUNT, AUTOMATED 183 10^3/uL (150-450); RED BLOOD COUNT 3.89 10^6/uL (4.30-6.10); WHITE BLOOD COUNT 16.4 10^3/uL (4.0-10.0)
[2022-06-10 14:20] LABS: CREATININE FOR GFR 1.75 MG/DL (0.70-1.30); GLOMERULAR FILTRATION RATE 39.7 (>35); POTASSIUM SERUM 3.9 MEQ/L (3.5-5.1)
[2022-06-10 16:13] LABS: APPEARANCE, URINE CLOUDY (CLEAR); BACTERIA, URINE AUTO 1+ (NEGATIVE); BILIRUBIN, URINE AUTO NEGATIVE (NEGATIVE); BLOOD, URINE BLOOD 3+ (NEGATIVE); COLOR, URINE YELLOW (YELLOW); GLUCOSE, URINE (UA) AUTO 3+ mg/dL (NEGATIVE); KETONE, URINE AUTO TRACE mg/dL (NEGATIVE); LEUKOCYTE ESTERASE, URINE AUTO 2+ (NEGATIVE); MUCUS, URINE SMALL (NEGATIVE); NITRITE, URINE AUTO NEGATIVE (NEGATIVE); PROTEIN, URINE AUTO 2+ mg/dL (NEGATIVE); RBC, URINE AUTO 46 /HPF (0-3); SPECIFIC GRAVITY URINE AUTO 1.017 (1.002-1.035); SQUAMOUS EPITHELIAL CELL UR AU 0 /HPF (0-6); UROBILINOGEN, URINE AUTO 0.2 mg/dL (0.0-2.0); WBC, URINE AUTO 118 /HPF (0-3)
== END ==
LOC: SKLAB5 10:55
PROVIDERS: ATTEND Nurse Practitioner
DX: R41.82 Altered mental status, unspecified (principal)

== ENCOUNTER → 2022-06-26 | Outpatient (REF) | payer MEDICARE, MEDICAID ==
[2022-06-23 11:05] LABS: PTH INTACT 71.5 PG/ML (18.5-88.0); TOTAL 25(OH) VITAMIN D 29.1 NG/ML (30.0-100.0)
== END ==
LOC: SKLAB5 12:39
PROVIDERS: ATTEND Internal Medicine
DX: E21.3 Hyperparathyroidism, unspecified (principal)

== ENCOUNTER → 2022-06-29 | Outpatient (REF) | payer MEDICARE, MEDICAID ==
[2022-06-29 14:08] LABS: HEMATOCRIT 33.3 % (42.0-52.0); MEAN CORPUSCULAR HEMOGLOBIN 30.8 pg (27.0-33.0); MEAN CORPUSCULAR VOLUME 93.3 fl (80.0-96.0); PLATELET COUNT, AUTOMATED 247 10^3/uL (150-450); RED BLOOD COUNT 3.57 10^6/uL (4.30-6.10); WHITE BLOOD COUNT 6.6 10^3/uL (4.0-10.0)
[2022-06-29 14:46] LABS: CALCIUM LEVEL 8.7 MG/DL (8.8-10.2); CREATININE FOR GFR 1.62 MG/DL (0.70-1.30); GLOMERULAR FILTRATION RATE 43.4 (>35); POTASSIUM SERUM 4.4 MEQ/L (3.5-5.1)
[2022-06-29 15:13] LABS: APPEARANCE, URINE MANUAL CLEAR (CLEAR); COLOR, URINE MANUAL LT YELLOW (YELLOW)
[2022-06-29 15:14] LABS: BILIRUBIN, URINE MANUAL NEGATIVE (NEGATIVE); GLUCOSE, URINE (UA) MANUAL 4+(1000 MG/DL) mg/dL (NEGATIVE); KETONE, URINE MANUAL NEGATIVE (NEGATIVE); PROTEIN, URINE MANUAL TRACE mg/dL (NEGATIVE); UROBILINOGEN, URINE MANUAL NORMAL (NORMAL)
[2022-06-29 15:15] LABS: BLOOD URINE MANUAL POSITIVE (NEGATIVE); LEUKOCYTE ESTERASE, URINE MAN POSITIVE (NEGATIVE); NITRITE, URINE MANUAL NEGATIVE (NEGATIVE)
[2022-06-29 15:24] LABS: BACTERIA, URINE SMALL AMOUNT; HYALINE CAST, URINE NONE SEEN /lpf (0-1); SQUAMOUS EPITHELIAL CELL URINE NONE SEEN /hpf (SMALL AMT); WBC, URINE TNTC /hpf (0-3)
== END ==
LOC: SKLAB5 13:27
PROVIDERS: ATTEND Nurse Practitioner Adult Health
DX: R41.82 Altered mental status, unspecified (principal)

== ENCOUNTER → 2022-07-28 | Outpatient (REF) | payer MEDICARE, MEDICAID | LOC: SKLAB5 11:46 | PROVIDERS: ATTEND Internal Medicine | DX: D64.9 Anemia, unspecified (principal) ==

== ENCOUNTER → 2022-08-25 | Outpatient (REF) | payer MEDICARE, MEDICAID ==
[2022-08-25 08:53] LABS: HEMATOCRIT 34.5 % (42.0-52.0); HEMOGLOBIN 11.2 g/dl (13.5-17.5); MEAN CORPUSCULAR HEMOGLOBIN 30.4 pg (27.0-33.0); MEAN CORPUSCULAR HGB CONC 32.5 g/dl (32.0-36.5); MEAN CORPUSCULAR VOLUME 93.8 fl (80.0-96.0); PLATELET COUNT, AUTOMATED 217 10^3/uL (150-450); RED BLOOD COUNT 3.68 10^6/uL (4.30-6.10); WHITE BLOOD COUNT 5.6 10^3/uL (4.0-10.0)
== END ==
LOC: SKLAB5 09:26
PROVIDERS: ATTEND Nurse Practitioner Adult Health
DX: E11.9 Type 2 diabetes mellitus without complications (principal); D64.9 Anemia, unspecified

== ENCOUNTER → 2022-09-10 | Outpatient (REF) | payer MEDICARE, MEDICAID ==
[2022-09-10 14:47] LABS: APPEARANCE, URINE MANUAL CLOUDY (CLEAR); COLOR, URINE MANUAL YELLOW (YELLOW); SPECIFIC GRAVITY,URINE MANUAL 1.015 (1.002-1.035)
[2022-09-10 14:48] LABS: BILIRUBIN, URINE MANUAL NEGATIVE (NEGATIVE); KETONE, URINE MANUAL 1+ mg/dL (NEGATIVE); NITRITE, URINE MANUAL NEGATIVE (NEGATIVE); PROTEIN, URINE MANUAL 1+ mg/dL (NEGATIVE); UROBILINOGEN, URINE MANUAL NORMAL (NORMAL)
[2022-09-10 14:49] LABS: BLOOD URINE MANUAL POSITIVE (NEGATIVE); LEUKOCYTE ESTERASE, URINE MAN POSITIVE (NEGATIVE)
[2022-09-10 15:08] LABS: RBC, URINE TNTC /hpf (0-3); SQUAMOUS EPITHELIAL CELL URINE SMALL AMOUNT /hpf (SMALL AMT); WBC, URINE TNTC /hpf (0-3)
[2022-09-10 15:09] LABS: AMORPHOUS SEDIMENT, URINE MOD AMOUNT (NEGATIVE); BACTERIA, URINE LARGE AMOUNT; HYALINE CAST, URINE NONE SEEN /lpf (0-1)
== END ==
LOC: M SMT 13:14
PROVIDERS: ATTEND Nurse Practitioner Women's Health
DX: Z93.59 Other cystostomy status (principal)

== ENCOUNTER → 2022-10-23 | Outpatient (REF) | payer MEDICARE, MEDICAID | LOC: SKLAB5 07:00 | PROVIDERS: ATTEND Nurse Practitioner Adult Health | DX: D64.9 Anemia, unspecified (principal) ==

== ENCOUNTER → 2022-11-12 | Outpatient (REF) | payer MEDICARE, MEDICAID ==
[2022-11-12 11:39] LABS: APPEARANCE, URINE MANUAL TURBID (CLEAR); COLOR, URINE MANUAL LT YELLOW (YELLOW)
[2022-11-12 11:40] LABS: PH,URINE MAN 5.5 UNITS (5.0 - 7.0); SPECIFIC GRAVITY,URINE MANUAL 1.015 (1.002-1.035)
[2022-11-12 11:41] LABS: BILIRUBIN, URINE MANUAL NEGATIVE (NEGATIVE); BLOOD URINE MANUAL POSITIVE (NEGATIVE); GLUCOSE, URINE (UA) MANUAL NEGATIVE (NEGATIVE); KETONE, URINE MANUAL 1+ mg/dL (NEGATIVE); LEUKOCYTE ESTERASE, URINE MAN POSITIVE (NEGATIVE); NITRITE, URINE MANUAL NEGATIVE (NEGATIVE); PROTEIN, URINE MANUAL 1+ mg/dL (NEGATIVE); UROBILINOGEN, URINE MANUAL NORMAL (NORMAL)
[2022-11-12 11:53] LABS: BACTERIA, URINE MOD AMOUNT; HYALINE CAST, URINE NONE SEEN /lpf (0-1); YEAST, URINE MOD AMOUNT
[2022-11-12 11:54] LABS: RBC, URINE 20-30 /hpf (0-3); WBC, URINE 15-20 /hpf (0-3)
[2022-11-12 11:55] LABS: SQUAMOUS EPITHELIAL CELL URINE NONE SEEN /hpf (SMALL AMT)
[2022-11-12 11:56] LABS: AMORPHOUS SEDIMENT, URINE SMALL AMOUNT (NEGATIVE)
== END ==
LOC: SKLAB5 10:29
PROVIDERS: ATTEND Nurse Practitioner Adult Health
DX: R41.82 Altered mental status, unspecified (principal)

== ENCOUNTER → 2023-01-22 | Outpatient (REF) | payer MEDICARE, MEDICAID | LOC: SKLAB5 10:11 | PROVIDERS: ATTEND Nurse Practitioner Adult Health | DX: D64.9 Anemia, unspecified (principal) ==

== ENCOUNTER → 2023-02-01 | Outpatient (REF) | payer MEDICARE, MEDICAID ==
[2023-02-01 17:35] LABS: APPEARANCE, URINE CLOUDY (CLEAR); BACTERIA, URINE AUTO 1+ (NEGATIVE); BILIRUBIN, URINE AUTO NEGATIVE (NEGATIVE); BLOOD, URINE BLOOD 2+ (NEGATIVE); COLOR, URINE AMBER (YELLOW); GLUCOSE, URINE (UA) AUTO 1+ mg/dL (NEGATIVE); KETONE, URINE AUTO NEGATIVE (NEGATIVE); LEUKOCYTE ESTERASE, URINE AUTO 3+ (NEGATIVE); NITRITE, URINE AUTO NEGATIVE (NEGATIVE); PROTEIN, URINE AUTO 1+ mg/dL (NEGATIVE); RBC, URINE AUTO 32 /HPF (0-3); SPECIFIC GRAVITY URINE AUTO 1.012 (1.002-1.035); SQUAMOUS EPITHELIAL CELL UR AU 1 /HPF (0-6); UROBILINOGEN, URINE AUTO 0.2 mg/dL (0.0-2.0); WBC, URINE AUTO 164 /HPF (0-3)
== END ==
LOC: M SMT 16:40
PROVIDERS: ATTEND Physician Assistant
DX: R30.0 Dysuria (principal)

== ENCOUNTER → 2023-02-17 | Outpatient (REF) | payer MEDICARE, MEDICAID ==
[2023-02-17 13:09] LABS: HEMATOCRIT 35.2 % (42.0-52.0); HEMOGLOBIN 11.2 g/dl (13.5-17.5); MEAN CORPUSCULAR HGB CONC 31.8 g/dl (32.0-36.5); MEAN CORPUSCULAR VOLUME 94.4 fl (80.0-96.0); PLATELET COUNT, AUTOMATED 236 10^3/uL (150-450); RED BLOOD COUNT 3.73 10^6/uL (4.30-6.10)
[2023-02-17 13:33] LABS: ALBUMIN 3.1 G/DL (3.2-5.2); ALKALINE PHOSPHATASE 88 U/L (46-116); ALT/SGPT < 9 U/L (7.0-40); AST/SGOT 12 U/L (<34); BILIRUBIN,TOTAL 0.4 MG/DL (0.3-1.2); BLOOD UREA NITROGEN 20 MG/DL (9-23); CALCIUM LEVEL 8.4 MG/DL (8.3-10.6); CARBON DIOXIDE LEVEL 24 MMOL/L (20-31); CHLORIDE LEVEL 107 MMOL/L (98-107); CREATININE FOR GFR 1.39 MG/DL (0.70-1.30); GLOMERULAR FILTRATION RATE 51.7 (>35); GLUCOSE, FASTING 229 MG/DL (74-106); POTASSIUM SERUM 4.3 MMOL/L (3.5-5.1); SODIUM LEVEL 141 MMOL/L (136-145)
== END ==
LOC: SKLAB5 12:01
PROVIDERS: ATTEND Nurse Practitioner Adult Health
DX: R53.83 Other fatigue (principal); R11.0 Nausea; R10.9 Unspecified abdominal pain; N20.0 Calculus of kidney; M47.9 Spondylosis, unspecified

== ENCOUNTER → 2023-02-26 | Outpatient (REF) | payer MEDICARE, MEDICAID ==
[2023-02-26 09:35] LABS: HEMATOCRIT 35.1 % (42.0-52.0); HEMOGLOBIN 11.5 g/dl (13.5-17.5); MEAN CORPUSCULAR HEMOGLOBIN 30.9 pg (27.0-33.0); MEAN CORPUSCULAR HGB CONC 32.8 g/dl (32.0-36.5); MEAN CORPUSCULAR VOLUME 94.4 fl (80.0-96.0); PLATELET COUNT, AUTOMATED 222 10^3/uL (150-450); RED BLOOD COUNT 3.72 10^6/uL (4.30-6.10); WHITE BLOOD COUNT 6.9 10^3/uL (4.0-10.0)
[2023-02-26 09:53] LABS: HEMOGLOBIN A1c 7.5 % (4.0-6.0)
== END ==
LOC: SKLAB5 09:33
PROVIDERS: ATTEND Nurse Practitioner Adult Health
DX: D64.9 Anemia, unspecified (principal); E11.9 Type 2 diabetes mellitus without complications

== ENCOUNTER → 2023-03-19 | Outpatient (REF) | payer MEDICARE, MEDICAID ==
[2023-03-19 21:59] LABS: APPEARANCE, URINE HAZY (CLEAR); BACTERIA, URINE AUTO NEGATIVE (NEGATIVE); BILIRUBIN, URINE AUTO NEGATIVE (NEGATIVE); BLOOD, URINE BLOOD 2+ (NEGATIVE); COLOR, URINE YELLOW (YELLOW); GLUCOSE, URINE (UA) AUTO NEGATIVE (NEGATIVE); KETONE, URINE AUTO NEGATIVE (NEGATIVE); LEUKOCYTE ESTERASE, URINE AUTO 2+ (NEGATIVE); MUCUS, URINE SMALL (NEGATIVE); NITRITE, URINE AUTO NEGATIVE (NEGATIVE); PROTEIN, URINE AUTO 1+ mg/dL (NEGATIVE); RBC, URINE AUTO 3 /HPF (0-3); SPECIFIC GRAVITY URINE AUTO 1.009 (1.002-1.035); SQUAMOUS EPITHELIAL CELL UR AU 0 /HPF (0-6); UROBILINOGEN, URINE AUTO 0.2 mg/dL (0.0-2.0); WBC, URINE AUTO 8 /HPF (0-3)
== END ==
LOC: SKLAB5 14:44
PROVIDERS: ATTEND Nurse Practitioner Adult Health
DX: R41.82 Altered mental status, unspecified (principal)

== ENCOUNTER → 2023-04-09 | Outpatient (REF) | payer MEDICARE, MEDICAID ==
[2023-04-09 20:29] LABS: APPEARANCE, URINE HAZY (CLEAR); BACTERIA, URINE AUTO 1+ (NEGATIVE); BILIRUBIN, URINE AUTO NEGATIVE (NEGATIVE); BLOOD, URINE BLOOD 1+ (NEGATIVE); COLOR, URINE YELLOW (YELLOW); GLUCOSE, URINE (UA) AUTO NEGATIVE (NEGATIVE); KETONE, URINE AUTO NEGATIVE (NEGATIVE); LEUKOCYTE ESTERASE, URINE AUTO 3+ (NEGATIVE); MUCUS, URINE SMALL (NEGATIVE); NITRITE, URINE AUTO NEGATIVE (NEGATIVE); PROTEIN, URINE AUTO 1+ mg/dL (NEGATIVE); RBC, URINE AUTO 7 /HPF (0-3); SQUAMOUS EPITHELIAL CELL UR AU 0 /HPF (0-6); UROBILINOGEN, URINE AUTO 0.2 mg/dL (0.0-2.0); WBC, URINE AUTO 55 /HPF (0-3)
[2023-04-09 20:47] LABS: HEMATOCRIT 36.2 % (42.0-52.0); HEMOGLOBIN 12.4 g/dl (13.5-17.5); MEAN CORPUSCULAR HEMOGLOBIN 31.9 pg (27.0-33.0); MEAN CORPUSCULAR HGB CONC 34.3 g/dl (32.0-36.5); MEAN CORPUSCULAR VOLUME 93.1 fl (80.0-96.0); PLATELET COUNT, AUTOMATED 190 10^3/uL (150-450); RED BLOOD COUNT 3.89 10^6/uL (4.30-6.10)
[2023-04-09 21:04] LABS: ALBUMIN 3.5 G/DL (3.2-5.2); BILIRUBIN,TOTAL 0.8 MG/DL (0.3-1.2); CALCIUM LEVEL 8.1 MG/DL (8.3-10.6); CREATININE FOR GFR 1.68 MG/DL (0.70-1.30); GLOMERULAR FILTRATION RATE 41.5 (>35); POTASSIUM SERUM 3.2 MMOL/L (3.5-5.1); TOTAL PROTEIN 5.9 G/DL (5.7-8.2)
== END ==
LOC: SKLAB5 18:28
PROVIDERS: ATTEND Internal Medicine
DX: R50.9 Fever, unspecified (principal)

== ENCOUNTER → 2023-04-12 | Outpatient (REF) | payer MEDICARE, MEDICAID ==
[2023-04-12 10:26] LABS: HEMATOCRIT 32.4 % (42.0-52.0); MEAN CORPUSCULAR HEMOGLOBIN 32.8 pg (27.0-33.0); MEAN CORPUSCULAR VOLUME 96.7 fl (80.0-96.0); PLATELET COUNT, AUTOMATED 150 10^3/uL (150-450); RED BLOOD COUNT 3.35 10^6/uL (4.30-6.10); WHITE BLOOD COUNT 6.4 10^3/uL (4.0-10.0)
[2023-04-12 10:56] LABS: CALCIUM LEVEL 7.7 MG/DL (8.3-10.6); CREATININE FOR GFR 1.71 MG/DL (0.70-1.30); GLOMERULAR FILTRATION RATE 40.7 (>35); POTASSIUM SERUM 3.7 MMOL/L (3.5-5.1)
== END ==
LOC: SKLAB5 09:58
PROVIDERS: ATTEND Internal Medicine
DX: R11.10 Vomiting, unspecified (principal)

== ENCOUNTER → 2023-06-25 | Outpatient (REF) | payer MEDICARE, MEDICAID ==
[2023-06-25 07:18] LABS: PHOSPHORUS LEVEL 3.7 MG/DL (2.4-5.1); PTH INTACT 84.9 PG/ML (18.5-88.0)
[2023-06-25 07:21] LABS: TOTAL 25(OH) VITAMIN D 44.4 NG/ML (20.0-100.0)
== END ==
LOC: SKLAB5 06:47
PROVIDERS: ATTEND Nurse Practitioner Adult Health
DX: E55.9 Vitamin D deficiency, unspecified (principal); E21.3 Hyperparathyroidism, unspecified

== ENCOUNTER → 2023-08-27 | Outpatient (REF) | payer MEDICARE, MEDICAID ==
[2023-08-27 07:42] LABS: HEMATOCRIT 34.9 % (42.0-52.0); HEMOGLOBIN 11.5 g/dl (13.5-17.5); MEAN CORPUSCULAR HEMOGLOBIN 31.2 pg (27.0-33.0); MEAN CORPUSCULAR VOLUME 94.6 fl (80.0-96.0); PLATELET COUNT, AUTOMATED 207 10^3/uL (150-450); RED BLOOD COUNT 3.69 10^6/uL (4.30-6.10); WHITE BLOOD COUNT 6.2 10^3/uL (4.0-10.0)
== END ==
LOC: SKLAB5 06:55
PROVIDERS: ATTEND Nurse Practitioner Adult Health
DX: D64.9 Anemia, unspecified (principal); E11.9 Type 2 diabetes mellitus without complications

== ENCOUNTER → 2023-11-25 | Outpatient (REF) | payer MEDICARE, MEDICAID | LOC: SKLAB5 13:11 | PROVIDERS: ATTEND Nurse Practitioner Adult Health | DX: R41.82 Altered mental status, unspecified (principal); Z53.8 Procedure and treatment not carried out for other reasons ==

== ENCOUNTER → 2023-11-26 | Outpatient (REF) | payer MEDICARE, MEDICAID ==
[2023-11-26 13:48] LABS: APPEARANCE, URINE HAZY (CLEAR); BACTERIA, URINE AUTO NEGATIVE (NEGATIVE); BILIRUBIN, URINE AUTO NEGATIVE (NEGATIVE); BLOOD, URINE BLOOD 1+ (NEGATIVE); COLOR, URINE YELLOW (YELLOW); GLUCOSE, URINE (UA) AUTO 1+ mg/dL (NEGATIVE); KETONE, URINE AUTO NEGATIVE (NEGATIVE); LEUKOCYTE ESTERASE, URINE AUTO 2+ (NEGATIVE); MUCUS, URINE SMALL (NEGATIVE); NITRITE, URINE AUTO NEGATIVE (NEGATIVE); PROTEIN, URINE AUTO NEGATIVE (NEGATIVE); RBC, URINE AUTO 3 /HPF (0-3); SPECIFIC GRAVITY URINE AUTO 1.011 (1.002-1.035); SQUAMOUS EPITHELIAL CELL UR AU 0 /HPF (0-6); UROBILINOGEN, URINE AUTO 0.2 mg/dL (0.0-2.0); WBC, URINE AUTO 20 /HPF (0-3)
== END ==
LOC: SKLAB5 09:52
PROVIDERS: ATTEND Nurse Practitioner Adult Health
DX: N39.0 Urinary tract infection, site not specified (principal)

== ENCOUNTER → 2023-12-28 | Outpatient (REF) | payer MEDICARE, MEDICAID ==
[~2023-12-28] MED LIST changes: -MIRA1POW3 PO; +MIRA33506 PO
[2023-12-28 14:40] LABS: HEMATOCRIT 34.8 % (42.0-52.0); HEMOGLOBIN 11.6 g/dl (13.5-17.5); MEAN CORPUSCULAR HEMOGLOBIN 32.1 pg (27.0-33.0); MEAN CORPUSCULAR HGB CONC 33.3 g/dl (32.0-36.5); MEAN CORPUSCULAR VOLUME 96.4 fl (80.0-96.0); PLATELET COUNT, AUTOMATED 206 10^3/uL (150-450); RED BLOOD COUNT 3.61 10^6/uL (4.30-6.10)
[2023-12-28 14:40] LABS: APPEARANCE, URINE CLOUDY (CLEAR); BACTERIA, URINE AUTO 1+ (NEGATIVE); BILIRUBIN, URINE AUTO NEGATIVE (NEGATIVE); BLOOD, URINE BLOOD 2+ (NEGATIVE); COLOR, URINE YELLOW (YELLOW); GLUCOSE, URINE (UA) AUTO NEGATIVE (NEGATIVE); KETONE, URINE AUTO NEGATIVE (NEGATIVE); LEUKOCYTE ESTERASE, URINE AUTO 3+ (NEGATIVE); MUCUS, URINE SMALL (NEGATIVE); NITRITE, URINE AUTO POSITIVE (NEGATIVE); PROTEIN, URINE AUTO NEGATIVE (NEGATIVE); RBC, URINE AUTO 15 /HPF (0-3); SPECIFIC GRAVITY URINE AUTO 1.011 (1.002-1.035); SQUAMOUS EPITHELIAL CELL UR AU 1 /HPF (0-6); UROBILINOGEN, URINE AUTO 0.2 mg/dL (0.0-2.0); WBC, URINE AUTO TNTC /HPF (0-3)
[2023-12-28 15:04] LABS: CALCIUM LEVEL 8.1 MG/DL (8.3-10.6); CREATININE FOR GFR 1.38 MG/DL (0.70-1.30); POTASSIUM SERUM 3.9 MMOL/L (3.5-5.1)
== END ==
LOC: SKLAB5 13:35
PROVIDERS: ATTEND Nurse Practitioner Adult Health
DX: R41.82 Altered mental status, unspecified (principal)

== ENCOUNTER → 2024-02-18 | Outpatient (REF) | payer MEDICARE, MEDICAID ==
[~2024-02-18] MED LIST changes: -GNPLIQ18 PO; +GUAI118S11 PO
[2024-02-18 14:16] LABS: HEMATOCRIT 34.7 % (42.0-52.0); HEMOGLOBIN 11.7 g/dl (13.5-17.5); MEAN CORPUSCULAR HEMOGLOBIN 31.5 pg (27.0-33.0); MEAN CORPUSCULAR HGB CONC 33.7 g/dl (32.0-36.5); MEAN CORPUSCULAR VOLUME 93.3 fl (80.0-96.0); PLATELET COUNT, AUTOMATED 238 10^3/uL (150-450); RED BLOOD COUNT 3.72 10^6/uL (4.30-6.10); WHITE BLOOD COUNT 7.1 10^3/uL (4.0-10.0)
[2024-02-18 14:27] LABS: APPEARANCE, URINE HAZY (CLEAR); BACTERIA, URINE AUTO 1+ (NEGATIVE); BILIRUBIN, URINE AUTO NEGATIVE (NEGATIVE); BLOOD, URINE BLOOD 1+ (NEGATIVE); COLOR, URINE YELLOW (YELLOW); GLUCOSE, URINE (UA) AUTO NEGATIVE (NEGATIVE); KETONE, URINE AUTO NEGATIVE (NEGATIVE); LEUKOCYTE ESTERASE, URINE AUTO 3+ (NEGATIVE); MUCUS, URINE SMALL (NEGATIVE); NITRITE, URINE AUTO NEGATIVE (NEGATIVE); PROTEIN, URINE AUTO 1+ mg/dL (NEGATIVE); RBC, URINE AUTO 10 /HPF (0-3); SPECIFIC GRAVITY URINE AUTO 1.011 (1.002-1.035); SQUAMOUS EPITHELIAL CELL UR AU 0 /HPF (0-6); UROBILINOGEN, URINE AUTO 0.2 mg/dL (0.0-2.0); WBC, URINE AUTO 66 /HPF (0-3)
[2024-02-18 14:38] LABS: CALCIUM LEVEL 8.5 MG/DL (8.3-10.6); CREATININE FOR GFR 1.45 MG/DL (0.70-1.30); GLOMERULAR FILTRATION RATE 49.1 (>35); POTASSIUM SERUM 3.9 MMOL/L (3.5-5.1)
== END ==
LOC: SKLAB5 12:58
PROVIDERS: ATTEND Internal Medicine
DX: R41.82 Altered mental status, unspecified (principal)

== ENCOUNTER → 2024-02-22 | Outpatient (REF) | payer MEDICARE, MEDICAID ==
[2024-02-22 08:34] LABS: HEMATOCRIT 34.4 % (42.0-52.0); HEMOGLOBIN 11.5 g/dl (13.5-17.5); MEAN CORPUSCULAR HEMOGLOBIN 31.7 pg (27.0-33.0); MEAN CORPUSCULAR HGB CONC 33.4 g/dl (32.0-36.5); MEAN CORPUSCULAR VOLUME 94.8 fl (80.0-96.0); PLATELET COUNT, AUTOMATED 255 10^3/uL (150-450); RED BLOOD COUNT 3.63 10^6/uL (4.30-6.10); WHITE BLOOD COUNT 7.7 10^3/uL (4.0-10.0)
[2024-02-22 09:01] LABS: HEMOGLOBIN A1c 7.3 % (4.0-6.0)
== END ==
LOC: SKLAB5 07:00
PROVIDERS: ATTEND Nurse Practitioner Adult Health
DX: D64.9 Anemia, unspecified (principal); E11.9 Type 2 diabetes mellitus without complications

== ENCOUNTER → 2024-04-25 | Outpatient (REF) | payer MEDICARE, MEDICAID ==
[2024-04-25 11:54] LABS: HEMOGLOBIN A1c 6.5 % (4.0-6.0)
== END ==
LOC: SKLAB5 10:48
PROVIDERS: ATTEND Internal Medicine
DX: E11.9 Type 2 diabetes mellitus without complications (principal)

== ENCOUNTER → 2024-06-13 | Outpatient (REF) | payer MEDICARE, MEDICAID ==
[2024-06-13 16:05] LABS: HEMATOCRIT 35.7 % (42.0-52.0); HEMOGLOBIN 11.7 g/dl (13.5-17.5); MEAN CORPUSCULAR HEMOGLOBIN 31.2 pg (27.0-33.0); MEAN CORPUSCULAR HGB CONC 32.8 g/dl (32.0-36.5); MEAN CORPUSCULAR VOLUME 95.2 fl (80.0-96.0); PLATELET COUNT, AUTOMATED 224 10^3/uL (150-450); RED BLOOD COUNT 3.75 10^6/uL (4.30-6.10); WHITE BLOOD COUNT 6.4 10^3/uL (4.0-10.0)
[2024-06-13 16:10] LABS: CALCIUM LEVEL 8.4 MG/DL (8.3-10.6); CREATININE FOR GFR 1.7 MG/DL (0.70-1.30); GLOMERULAR FILTRATION RATE 40.9 (>35); POTASSIUM SERUM 3.9 MMOL/L (3.5-5.1)
== END ==
LOC: SKLAB5 12:18
PROVIDERS: ATTEND Internal Medicine
DX: U07.1 COVID-19 (principal); Z79.899 Other long term (current) drug therapy

== ENCOUNTER → 2024-06-27 | Outpatient (REF) | payer MEDICARE, MEDICAID ==
[2024-06-27 09:38] LABS: PHOSPHORUS LEVEL 3.2 MG/DL (2.4-5.1); PTH INTACT 130.2 PG/ML (18.5-88.0)
== END ==
LOC: SKLAB5 07:00
PROVIDERS: ATTEND Internal Medicine
DX: E21.3 Hyperparathyroidism, unspecified (principal); E55.9 Vitamin D deficiency, unspecified

== ENCOUNTER → 2024-10-21 | Outpatient (REF) | payer MEDICARE, MEDICAID ==
[~2024-10-21] MED LIST changes: -SIME180C25 PO; +SIME1CAP4 PO
[2024-10-21 18:10] LABS: APPEARANCE, URINE CLOUDY (CLEAR); BACTERIA, URINE AUTO 1+ (NEGATIVE); BILIRUBIN, URINE AUTO NEGATIVE (NEGATIVE); BLOOD, URINE BLOOD 2+ (NEGATIVE); COLOR, URINE YELLOW (YELLOW); GLUCOSE, URINE (UA) AUTO NEGATIVE (NEGATIVE); KETONE, URINE AUTO NEGATIVE (NEGATIVE); LEUKOCYTE ESTERASE, URINE AUTO 3+ (NEGATIVE); MUCUS, URINE SMALL (NEGATIVE); NITRITE, URINE AUTO NEGATIVE (NEGATIVE); PROTEIN, URINE AUTO 1+ mg/dL (NEGATIVE); RBC, URINE AUTO 19 /HPF (0-3); SPECIFIC GRAVITY URINE AUTO 1.014 (1.002-1.035); SQUAMOUS EPITHELIAL CELL UR AU 2 /HPF (0-6); UROBILINOGEN, URINE AUTO 0.2 mg/dL (0.0-2.0); WBC, URINE AUTO TNTC /HPF (0-3)
== END ==
LOC: SKLAB5 17:36
PROVIDERS: ATTEND Internal Medicine
DX: R50.9 Fever, unspecified (principal); R53.83 Other fatigue; I27.20 Pulmonary hypertension, unspecified

== ENCOUNTER → 2024-10-22 | Outpatient (REF) | payer MEDICARE, MEDICAID ==
[2024-10-22 10:30] LABS: HEMATOCRIT 33.2 % (42.0-52.0); HEMOGLOBIN 10.6 g/dl (13.5-17.5); MEAN CORPUSCULAR HEMOGLOBIN 30.9 pg (27.0-33.0); MEAN CORPUSCULAR HGB CONC 31.9 g/dl (32.0-36.5); MEAN CORPUSCULAR VOLUME 96.8 fl (80.0-96.0); PLATELET COUNT, AUTOMATED 167 10^3/uL (150-450); RED BLOOD COUNT 3.43 10^6/uL (4.30-6.10); WHITE BLOOD COUNT 6.5 10^3/uL (4.0-10.0)
[2024-10-22 10:47] LABS: CALCIUM LEVEL 8.3 MG/DL (8.3-10.6); CREATININE FOR GFR 2.4 MG/DL (0.70-1.30); GLOMERULAR FILTRATION RATE 27.4 (>35); POTASSIUM SERUM 3.9 MMOL/L (3.5-5.1)
== END ==
LOC: SKLAB5 03:31
PROVIDERS: ATTEND Obstetrics & Gynecology
DX: F01.518 Vascular dementia, unspecified severity, with other behavioral disturbance (principal); I13.10 Hypertensive heart and chronic kidney disease without heart failure, with stage 1 through stage 4 chronic kidney disease, or unspecified chronic kidney disease; N18.9 Chronic kidney disease, unspecified

== ENCOUNTER → 2024-10-24 | Outpatient (REF) | payer MEDICARE, MEDICAID ==
[2024-10-24 09:30] LABS: HEMATOCRIT 30.8 % (42.0-52.0); HEMOGLOBIN 10.3 g/dl (13.5-17.5); MEAN CORPUSCULAR HEMOGLOBIN 31.9 pg (27.0-33.0); MEAN CORPUSCULAR HGB CONC 33.4 g/dl (32.0-36.5); MEAN CORPUSCULAR VOLUME 95.4 fl (80.0-96.0); PLATELET COUNT, AUTOMATED 187 10^3/uL (150-450); RED BLOOD COUNT 3.23 10^6/uL (4.30-6.10); WHITE BLOOD COUNT 6.4 10^3/uL (4.0-10.0)
[2024-10-24 09:56] LABS: CALCIUM LEVEL 8.7 MG/DL (8.3-10.6); CREATININE FOR GFR 1.76 MG/DL (0.70-1.30); GLOMERULAR FILTRATION RATE 39.2 (>35)
== END ==
LOC: SKLAB5 07:00
PROVIDERS: ATTEND Internal Medicine
DX: R94.4 Abnormal results of kidney function studies (principal)

== ENCOUNTER → 2024-11-10 | Outpatient (REF) | payer MEDICARE, MEDICAID ==
[2024-11-10 10:58] LABS: CHOLESTEROL RISK RATIO 4.29 (<5); HDL CHOLESTEROL 36.8 MG/DL (>40); LDL CHOLESTEROL 96.4 MG/DL (<100); NON-HDL-C 121.2 MG/DL
[2024-11-10 11:32] LABS: HEMOGLOBIN A1c 6.4 % (4.0-6.0)
== END ==
LOC: SKLAB5 07:00
PROVIDERS: ATTEND Internal Medicine
DX: E78.00 Pure hypercholesterolemia, unspecified (principal); E11.9 Type 2 diabetes mellitus without complications

== ENCOUNTER → 2025-02-16 | Outpatient (REF) | payer MEDICARE, MEDICAID ==
[2025-02-16 12:15] LABS: HEMATOCRIT 36.2 % (42.0-52.0); HEMOGLOBIN 11.7 g/dl (13.5-17.5); MEAN CORPUSCULAR HEMOGLOBIN 30.5 pg (27.0-33.0); MEAN CORPUSCULAR HGB CONC 32.3 g/dl (32.0-36.5); MEAN CORPUSCULAR VOLUME 94.3 fl (80.0-96.0); PLATELET COUNT, AUTOMATED 222 10^3/uL (150-450); RED BLOOD COUNT 3.84 10^6/uL (4.30-6.10); WHITE BLOOD COUNT 7.2 10^3/uL (4.0-10.0)
[2025-02-16 12:36] LABS: CALCIUM LEVEL 8.3 MG/DL (8.3-10.6); CREATININE FOR GFR 1.96 MG/DL (0.70-1.30); GLOMERULAR FILTRATION RATE 32.5 (>35)
[2025-02-16 15:00] LABS: APPEARANCE, URINE CLEAR (CLEAR); BACTERIA, URINE AUTO 1+ (NEGATIVE); BILIRUBIN, URINE AUTO NEGATIVE (NEGATIVE); BLOOD, URINE BLOOD 1+ (NEGATIVE); COLOR, URINE YELLOW (YELLOW); GLUCOSE, URINE (UA) AUTO NEGATIVE (NEGATIVE); KETONE, URINE AUTO NEGATIVE (NEGATIVE); LEUKOCYTE ESTERASE, URINE AUTO 1+ (NEGATIVE); MUCUS, URINE SMALL (NEGATIVE); NITRITE, URINE AUTO POSITIVE (NEGATIVE); PROTEIN, URINE AUTO NEGATIVE (NEGATIVE); RBC, URINE AUTO 2 /HPF (0-3); SPECIFIC GRAVITY URINE AUTO 1.012 (1.002-1.035); SQUAMOUS EPITHELIAL CELL UR AU 0 /HPF (0-6); UROBILINOGEN, URINE AUTO 0.2 mg/dL (0.0-2.0); WBC, URINE AUTO 5 /HPF (0-3)
== END ==
LOC: SKLAB5 11:30
PROVIDERS: ATTEND Internal Medicine
DX: R39.89 Other symptoms and signs involving the genitourinary system (principal)

== ENCOUNTER → 2025-03-01 | Outpatient (REF) | payer MEDICARE, MEDICAID ==
[~2025-03-01] MED LIST changes: -FLOM0.4C39 PO; +TAMS-18 PO
[2025-03-01 08:53] LABS: HEMATOCRIT 37.4 % (42.0-52.0); HEMOGLOBIN 12.3 g/dl (13.5-17.5); MEAN CORPUSCULAR HEMOGLOBIN 30.3 pg (27.0-33.0); MEAN CORPUSCULAR HGB CONC 32.9 g/dl (32.0-36.5); MEAN CORPUSCULAR VOLUME 92.1 fl (80.0-96.0); PLATELET COUNT, AUTOMATED 243 10^3/uL (150-450); RED BLOOD COUNT 4.06 10^6/uL (4.30-6.10); WHITE BLOOD COUNT 6.8 10^3/uL (4.0-10.0)
[2025-03-01 09:09] LABS: HEMOGLOBIN A1c 6.3 % (4.0-6.0)
[2025-03-01 09:22] LABS: CALCIUM LEVEL 8.4 MG/DL (8.3-10.6); CREATININE FOR GFR 1.9 MG/DL (0.70-1.30); GLOMERULAR FILTRATION RATE 33.7 (>35)
== END ==
LOC: SKLAB5 07:26
PROVIDERS: ATTEND Internal Medicine
DX: E11.9 Type 2 diabetes mellitus without complications (principal)

== ENCOUNTER → 2025-03-08 | Outpatient (REF) | payer MEDICARE, MEDICAID ==
[2025-03-08 08:06] LABS: CALCIUM LEVEL 7.8 MG/DL (8.3-10.6); CREATININE FOR GFR 1.81 MG/DL (0.70-1.30); GLOMERULAR FILTRATION RATE 35.7 (>35); POTASSIUM SERUM 3.7 MMOL/L (3.5-5.1)
== END ==
LOC: SKLAB5 07:00
PROVIDERS: ATTEND Internal Medicine
DX: Z72.51 High risk heterosexual behavior (principal)

== ENCOUNTER → 2025-03-09 | Outpatient (REF) | payer MEDICARE, MEDICAID ==
[2025-03-09 15:36] LABS: APPEARANCE, URINE HAZY (CLEAR); BACTERIA, URINE AUTO NEGATIVE (NEGATIVE); BILIRUBIN, URINE AUTO NEGATIVE (NEGATIVE); BLOOD, URINE BLOOD 2+ (NEGATIVE); COLOR, URINE YELLOW (YELLOW); GLUCOSE, URINE (UA) AUTO NEGATIVE (NEGATIVE); KETONE, URINE AUTO NEGATIVE (NEGATIVE); LEUKOCYTE ESTERASE, URINE AUTO 2+ (NEGATIVE); NITRITE, URINE AUTO NEGATIVE (NEGATIVE); PROTEIN, URINE AUTO 2+ mg/dL (NEGATIVE); RBC, URINE AUTO 61 /HPF (0-3); SPECIFIC GRAVITY URINE AUTO 1.014 (1.002-1.035); SQUAMOUS EPITHELIAL CELL UR AU 1 /HPF (0-6); UROBILINOGEN, URINE AUTO 0.2 mg/dL (0.0-2.0); WBC, URINE AUTO 45 /HPF (0-3); YEAST LIKE CELL URINE AUTO LARGE
[2025-03-09 15:43] LABS: HEMATOCRIT 33.8 % (42.0-52.0); MEAN CORPUSCULAR HEMOGLOBIN 30.1 pg (27.0-33.0); MEAN CORPUSCULAR HGB CONC 32.5 g/dl (32.0-36.5); MEAN CORPUSCULAR VOLUME 92.3 fl (80.0-96.0); PLATELET COUNT, AUTOMATED 252 10^3/uL (150-450); RED BLOOD COUNT 3.66 10^6/uL (4.30-6.10); WHITE BLOOD COUNT 5.8 10^3/uL (4.0-10.0)
[2025-03-09 16:13] LABS: CALCIUM LEVEL 7.9 MG/DL (8.3-10.6); CREATININE FOR GFR 1.87 MG/DL (0.70-1.30); GLOMERULAR FILTRATION RATE 34.4 (>35); POTASSIUM SERUM 4.4 MMOL/L (3.5-5.1)
== END ==
LOC: SKLAB5 15:07
PROVIDERS: ATTEND Internal Medicine
DX: Z72.51 High risk heterosexual behavior (principal); Z79.899 Other long term (current) drug therapy

== ENCOUNTER → 2025-04-14 | Outpatient (REF) | payer MEDICARE, MEDICAID ==
[2025-04-14 08:56] LABS: HEMATOCRIT 33.4 % (42.0-52.0); HEMOGLOBIN 10.7 g/dl (13.5-17.5); MEAN CORPUSCULAR HEMOGLOBIN 30.5 pg (27.0-33.0); MEAN CORPUSCULAR VOLUME 95.2 fl (80.0-96.0); PLATELET COUNT, AUTOMATED 159 10^3/uL (150-450); RED BLOOD COUNT 3.51 10^6/uL (4.30-6.10); WHITE BLOOD COUNT 11.2 10^3/uL (4.0-10.0)
[2025-04-14 09:20] LABS: CALCIUM LEVEL 7.9 MG/DL (8.3-10.6); CREATININE FOR GFR 1.91 MG/DL (0.70-1.30); GLOMERULAR FILTRATION RATE 33.5 (>35); POTASSIUM SERUM 3.8 MMOL/L (3.5-5.1)
== END ==
LOC: SKLAB5 04-13 14:53
PROVIDERS: ATTEND Internal Medicine
DX: N18.9 Chronic kidney disease, unspecified (principal)

== ENCOUNTER 2025-05-19 01:45 | Emergency (ER) | payer MEDICARE, MEDICAID ==
[2025-05-19 04:25] LABS: BASO # 0.0 10^3/uL (0.0-0.2); BASO % 0.3 % (0.0-1.0); EOS # 0.1 10^3/uL (0.0-0.5); EOS % 0.8 % (0.0-3.0); LYMPH # 1.5 10^3/uL (1.5-5.0); LYMPH % 11.5 % (24.0-44.0); MONO # 1.1 10^3/uL (0.0-0.8); MONO % 8.4 % (2.0-8.0); NEUTROPHILS # 10.2 10^3/uL (1.5-8.5); NEUTROPHILS % 78.6 % (36.0-66.0); PLATELET COUNT, AUTOMATED 208 10^3/uL (150-450)
[2025-05-19 04:45] LABS: INR 0.95
[2025-05-19 04:49] LABS: CALCIUM LEVEL 8.2 MG/DL (8.3-10.6); CARBON DIOXIDE LEVEL 24.0 MMOL/L (20-31); CHLORIDE LEVEL 105.0 MMOL/L (98-107); CREATININE FOR GFR 1.99 MG/DL (0.70-1.30); GLOMERULAR FILTRATION RATE 31.9 (>35); POTASSIUM SERUM 4.2 MMOL/L (3.5-5.1); SODIUM LEVEL 142.0 MMOL/L (136-145)
[2025-05-19 08:00] VITALS: BP 159/68; TEMP 98; O2SAT 96
== END 2025-05-19 08:00 | disposition home or self-care (01) ==
LOC: M ED 01:45
DX: T83.091A Other mechanical complication of indwelling urethral catheter, initial encounter (principal); Z79.1 Long term (current) use of non-steroidal anti-inflammatories (NSAID); Z79.4 Long term (current) use of insulin; Z79.899 Other long term (current) drug therapy

== ENCOUNTER → 2025-05-25 | Outpatient (REF) | payer MEDICARE, MEDICAID ==
[2025-05-25 09:26] LABS: PLATELET COUNT, AUTOMATED 261 10^3/uL (150-450)
[2025-05-25 09:48] LABS: CALCIUM LEVEL 8.4 MG/DL (8.3-10.6); CARBON DIOXIDE LEVEL 24.0 MMOL/L (20-31); CHLORIDE LEVEL 105.0 MMOL/L (98-107); CREATININE FOR GFR 1.79 MG/DL (0.70-1.30); GLOMERULAR FILTRATION RATE 36.2 (>35); POTASSIUM SERUM 4.0 MMOL/L (3.5-5.1); SODIUM LEVEL 143.0 MMOL/L (136-145)
== END ==
LOC: SKLAB5 07:00
PROVIDERS: ATTEND Internal Medicine
DX: D72.829 Elevated white blood cell count, unspecified (principal)

== ENCOUNTER → 2025-05-31 | Outpatient (REF) | payer MEDICARE, MEDICAID ==
[2025-05-31 11:07] LABS: ESTIMATED AVERAGE GLUCOSE 183.0 MG/DL (60-110)
== END ==
LOC: SKLAB5 07:00
PROVIDERS: ATTEND Internal Medicine
DX: E11.9 Type 2 diabetes mellitus without complications (principal)

== ENCOUNTER → 2025-07-05 | Outpatient (REF) | payer MEDICARE, MEDICAID ==
[2025-07-05 09:56] LABS: PHOSPHORUS LEVEL 3.3 MG/DL (2.4-5.1)
[2025-07-05 09:58] LABS: TOTAL 25(OH) VITAMIN D 49.8 NG/ML (20.0-100.0)
[2025-07-05 09:59] LABS: PTH INTACT 117.0 PG/ML (18.5-88.0)
== END ==
LOC: SKLAB5 07:00
PROVIDERS: ATTEND Internal Medicine
DX: E55.9 Vitamin D deficiency, unspecified (principal); E21.3 Hyperparathyroidism, unspecified

== ENCOUNTER 2025-08-30 19:16 | Emergency (ER) | payer MEDICARE, MEDICAID ==
[2025-08-30 21:53] LABS: BASO # 0.0 10^3/uL (0.0-0.2); BASO % 0.4 % (0.0-1.0); EOS # 0.1 10^3/uL (0.0-0.5); EOS % 1.7 % (0.0-3.0); LYMPH # 1.7 10^3/uL (1.5-5.0); LYMPH % 23.8 % (24.0-44.0); MONO # 0.7 10^3/uL (0.0-0.8); MONO % 9.7 % (2.0-8.0); NEUTROPHILS # 4.4 10^3/uL (1.5-8.5); NEUTROPHILS % 64.1 % (36.0-66.0); PLATELET COUNT, AUTOMATED 247 10^3/uL (150-450)
[2025-08-30 21:57] LABS: KETONE, URINE AUTO RFX NEGATIVE (NEGATIVE); LEUKOCYTE ESTERASE UR AUTO RFX 3+ (NEGATIVE); MUCUS, URINE RFX SMALL (NEGATIVE); NITRITE, URINE AUTO RFX NEGATIVE (NEGATIVE); RBC, URINE AUTO RFX 22 /HPF (0-3); SQUAM EPITHELIAL CELL UR AURFX 1 /HPF (0-6); WBC, URINE AUTO RFX 96 /HPF (0-3)
[2025-08-30 22:09] LABS: ETHYL ALCOHOL (ETHANOL) < 0.003 % (0.000-0.010)
[2025-08-30 22:11] LABS: ALT/SGPT 17 U/L (7.0-40); AST/SGOT 13 U/L (<34); CALCIUM LEVEL 8.9 MG/DL (8.3-10.6); CARBON DIOXIDE LEVEL 28 MMOL/L (20-31); CHLORIDE LEVEL 103 MMOL/L (98-107); CREATININE FOR GFR 1.96 MG/DL (0.70-1.30); GLOMERULAR FILTRATION RATE 32.3 (>35); POTASSIUM SERUM 4.0 MMOL/L (3.5-5.1); SALICYLATE LEVEL < 3.0 MG/DL (<30); SODIUM LEVEL 141 MMOL/L (136-145)
[2025-08-30 22:21] LABS: AMPHETAMINES LEVEL URINE NEGATIVE (NEGATIVE); BARBITURATES URINE NEGATIVE (NEGATIVE); BENZODIAZEPINES URINE NEGATIVE (NEGATIVE); CANNABINOIDS URINE NEGATIVE (NEGATIVE); COCAINE METABOLITE URINE NEGATIVE (NEGATIVE); METHADONE URINE NEGATIVE (NEGATIVE); OPIATES URINE NEGATIVE (NEGATIVE); PHENCYCLIDINE URINE NEGATIVE (NEGATIVE)
[2025-08-31] MEDS: CLINDAMYCIN 150 MG CAPSULE PO ONE (00:30)
[2025-08-31 00:31] VITALS: BP 167/74; TEMP 98.6; O2SAT 93
[2025-08-31] MEDS ORDERED: CLEO300C2 PO (00:31)
== END 2025-08-31 01:05 | disposition home or self-care (01) ==
LOC: M ED 19:16
DX: N39.0 Urinary tract infection, site not specified (principal); F32.A Depression, unspecified; E11.9 Type 2 diabetes mellitus without complications; I10 Essential (primary) hypertension; F03.90 Unspecified dementia, unspecified severity, without behavioral disturbance, psychotic disturbance, mood disturbance, and anxiety; Z79.1 Long term (current) use of non-steroidal anti-inflammatories (NSAID); Z79.2 Long term (current) use of antibiotics; Z79.4 Long term (current) use of insulin; Z79.899 Other long term (current) drug therapy